=== PATIENT | female | born 1960 | race Caucasian/White ===

== ENCOUNTER 2022-08-25 15:31 | Observation (INO) ==
[2022-08-25] MEDS ORDERED: KETOROLAC TROMETHAMINE 15 MG/ML VIAL IV STA (16:19)
[2022-08-25] MEDS ORDERED: SODIUM CHLORIDE 0.9% 1000ML 1,000 ML IV STA (16:19)
[2022-08-25] MEDS ORDERED: dexAMETHasone**PF** 10 MG/ML VIAL IV ONE (16:24)
--- NOTE | 2022-08-25 16:36 | Emergency Department Note ---
History of Present Illness General Chief complaint: Abdominal Pain Time Seen by Provider: 08/25/22 16:02 History of Present Illness Maximum Pain Intensity: 7 This 61-year-old female patient presents emergency department complaining of left-sided back pain, left flank and left lower quadrant abdominal pain, decreased urine output, and recent UTI. The patient has a history of chronic back issues with a history of surgery to her back in the past. She states in mid July she was helping her mom clean up the house and was doing a lot of heavy lifting and developed progressively worsening left lower back pain. She states the pain is now so severe that she cannot tolerate it. She rates the pain as sharp and 10/10. She was seen in [facility] in the [place] ER over the last 3 weeks. She does not remember what [facility] did for the work-up, but states [place] did an MRI that showed she was "bone to nerve" and they recommended her follow-up with a spine surgeon. She has an appointment with Dr. Wood of [place] on 08/03/22. She states that she does not feel she can wait that long because of the pain. She has tried [place], naproxen, Flexeril, and Toradol without relief of her symptoms. She has tingling into the left leg and radiation of the pain into the top of the left leg. She is able to walk, but has trouble walking because of the pain and gets fatigued easily from walking. Denies any loss of control of her bowel or bladder functions. She has been somewhat constipated recently because of the pain medication and has been taking [id number] stool softeners and enemas. She was also diagnosed with a UTI in [place] ER, but states she did not finish her antibiotics. She denies any dysuria, but states that she has not been having normal urine output. Denies any hematuria. Pain to the left flank and left lower quadrant is new. She denies any fevers, nausea, or vomiting. No chest pain or shortness of breath. She has been having mild intermittent reflux symptoms from the pain medication. Home Medications Medication Instructions Recorded Confirmed Type cyclobenzaprine 10 mg tablet 10 mg PO TID PRN Muscle Spasticity 08/25/22 08/25/22 History hydrocodone 5 mg-acetaminophen 325 1 tab PO Q6H PRN Back Pain 08/25/22 08/25/22 History mg tablet levothyroxine 75 mcg tablet 75 mcg PO DAILY 08/25/22 08/25/22 History metformin 500 mg tablet,extended 1,000 mg PO BID 08/25/22 08/25/22 History release 24 hr prednisone 10 mg tablet 10 mg PO DAILY 08/25/22 08/25/22 History Allergies Allergy/AdvReac Type Severity Reaction Status Date / Time No Known Allergies Allergy Verified 08/25/22 16:19 Past Med/Surg History Medical History Diabetes Hypothyroidism Surgical History H/O lumbosacral spine surgery Social History Smoking Status: Never smoker Hx Alcohol Use: No Hx Substance Use: No Preferred Language: Stateless Communication Ability: Effective Mixed [employer] Required: No Beliefs That Will Affect Care: Baptism Baptism Beliefs: CONGREGATIONAL Current Living Situation: Alone Feels Safe at Home: Yes Safety Concerns: Feels Safe At This Time Assistive Devices: Walker Review of Systems See HPI for pertinent positives & negatives. and A total of 10 systems reviewed and were otherwise negative Physical Exam Vital Signs Vital Signs - 24 hr 08/25/22 15:50 08/25/22 17:30 08/25/22 19:00 Temperature 36.8 C Temperature Source Oral Pulse Rate 78 Pulse Rate [Right Finger] 87 Pulse Rhythm Regular Pulse Rhythm [Right Finger] Regular Pulse Strength Normal Pulse Strength [Right Finger] Normal Respiratory Rate 18 16 Respiratory Effort / Characteristics Non-Labored Spontaneous Non-Labored Spontaneous Respiratory Depth Normal Normal Respiratory Pattern Regular Regular Blood Pressure 150/102 H Blood Pressure [Right Arm] 147/89 H Blood Pressure Mean 118 Blood Pressure Mean [Right Arm] 108 Blood Pressure Position Sitting Pulse Oximetry 98 99 95 Oxygen Delivery Method Room Air Room Air Room Air Sepsis Recent Fever Within 48 Hours No Sepsis New/Unexplained Change in Mental Status No Sepsis Action Taken by Nursing No Action Required 08/25/22 21:00 Temperature Temperature Source Pulse Rate Pulse Rate [Right Finger] Pulse Rhythm Pulse Rhythm [Right Finger] Pulse Strength Pulse Strength [Right Finger] Respiratory Rate Respiratory Effort / Characteristics Non-Labored Respiratory Depth Normal Respiratory Pattern Blood Pressure Blood Pressure [Right Arm] Blood Pressure Mean Blood Pressure Mean [Right Arm] Blood Pressure Position Pulse Oximetry Oxygen Delivery Method Sepsis Recent Fever Within 48 Hours Sepsis New/Unexplained Change in Mental Status Sepsis Action Taken by Nursing VITALS: Vitals are noted on the nurse's note and reviewed by myself. GENERAL: 61-year-old female, who appears in pain, but nontoxic and non- diaphoretic, well-developed well-nourished. SKIN: Capillary refill <2 sec. No tenting of the skin. HEAD: Normocephalic, atraumatic. EARS: External auditory canals clear, tympanic membranes pearly rey without erythema or effusion bilaterally. EYES: PERRLA. EOMI. Conjunctivae without injection, sclerae without icterus. NOSE: Patent without discharge. MOUTH: Mucous membranes moist. Uvula midline. Airway patent. NECK: Supple without nuchal rigidity. HEART: Regular rate and rhythm without murmurs gallops or rubs. LUNGS: Clear to auscultation bilaterally without wheezes, rales or rhonchi. No retractions or accessory muscle use. ABDOMEN: Positive bowel sounds x 4. Normal tympanic percussion. Soft, tender to palpation over the left flank and left lower quadrant, without masses or organomegaly. Positive left-sided CVA tenderness. Granda sign negative. No guarding or rebound tenderness. No focal RLQ tenderness. MUSCULOSKELETAL: Tender to palpation over the mid to lower lumbar spine and the left-sided paraspinal muscles. No tenderness over the right-sided paraspinal muscles. No tenderness of the cervical or thoracic spine. Full range of motion of the bilateral upper extremities without tenderness to palpation. The left leg appears slightly shortened and externally rotated compared to the right. However, this may just be due to the patient's positioning because of pain in the lower back. Range of motion of the left hip causes significant pain and is limited due to the pain. Full range of motion of the left knee and ankle without pain. Positive straight leg raise on the left. Strength on the left is 3/5 compared to 4/5 on the right. Full range of motion of the right lower extremity without pain. Dorsalis pedis and posterior tibial pulses 2+. Normal sensation to light and sharp touch of the bilateral lower extremities. NEURO: Patient was alert and oriented to person place and time. No focal neurological deficits. Course Administered Medications Sodium Chloride (Nss 1000ml) 1,000 mls @ 60 mls/hr IV .[id number] ONE Stop: 08/26/22 14:10 Last Admin: 08/26/22 00:53 Dose: 60 mls/hr Documented By: YAQUELIN Promethazine HCl 6.25 mg/ (Sodium Chloride) 50.25 mls @ 201 mls/hr IV Q6H PRN PRN Reason: Nausea And Vomiting Stop: 09/24/22 21:30 Last Infusion: 08/26/22 01:10 Dose: 0 mls/hr Documented By: Admin: 08/26/22 00:53 Dose: 201 mls/hr Documented By: YAQUELIN Lidocaine (Lidocaine 5% 1 Patch) 1 patch TD QAM ABHINAV Stop: 09/24/22 21:34 Last Admin: 08/26/22 00:53 Dose: Not Given Documented By: YAQUELIN Discontinued Medications Dexamethasone Sodium Phosphate (DexamethasonePf 10 Mg/Ml Vial) 10 mg IV NOW ONE Stop: 08/25/22 16:25 Last Admin: 08/25/22 16:34 Dose: 10 mg Documented By: GRACIA Fentanyl Citrate (Fentanyl Citrate 100 Mcg/2 Ml Vial) 50 mcg IV NOW STA Stop: 08/25/22 20:21 Last Admin: 08/25/22 20:59 Dose: 50 mcg Documented By: GENE Sodium Chloride (Nss 1000ml) 1,000 mls @ 999 mls/hr IV .Q1H1M STA Stop: 08/25/22 17:19 Last Infusion: 08/25/22 19:56 Dose: 0 mls/hr Documented By: Admin: 08/25/22 16:33 Dose: 999 mls/hr Documented By: GRACIA Cefepime HCl (Maxipime) 2,000 mg in 20 mls @ 5 mls/min IV NOW STA; Protocol Stop: 08/25/22 20:44 Last Admin: 08/25/22 21:53 Dose: 5 mls/min Documented By: GENE Insulin Aspart (Insulin Aspart Per Unit) 0 units SC ACHS ABHINAV Stop: 09/24/22 23:55 Last Admin: 08/26/22 00:52 Dose: 7 units Documented By: YAQUELIN Co-signed By: CRISELDA Insulin Glargine (Lantus Per Unit Charge) 5 units SQ HS ABHINAV Stop: 09/24/22 23:55 Last Admin: 08/26/22 00:09 Dose: Not Given Documented By: YAQUELIN Insulin Glargine (Lantus Per Unit Charge) 20 units SQ NOW STA Stop: 08/25/22 23:59 Last Admin: 08/26/22 00:52 Dose: 20 units Documented By: YAQUELIN Co-signed By: CRISELDA Ioversol (Ioversol 350 Mg 100ml Prefilled Syringe) 93 ml IV ONCE ONE Stop: 08/25/22 17:26 Last Admin: 08/25/22 17:26 Dose: 93 ml Documented By: JARRED Ketorolac Tromethamine (Ketorolac Tromethamine 15 Mg/Ml Vial) 15 mg IV NOW STA Stop: 08/25/22 16:20 Last Admin: 08/25/22 16:34 Dose: 15 mg Documented By: GRACIA Lactulose (Lactulose Syrup 20 Gm/30 Ml Udc) 30 gm PO NOW STA Stop: 08/25/22 21:26 Last Admin: 08/25/22 21:53 Dose: 30 gm Documented By: GENE Morphine Sulfate (Morphine Sulfate 4 Mg/Ml 1 Ml Carp\\Vial) 4 mg IV NOW STA Stop: 08/25/22 19:32 Last Admin: 08/25/22 19:37 Dose: 4 mg Documented By: JASON Ondansetron HCl (Ondansetron Inj 2 Mg/Ml 2 Ml Vial) 4 mg IV NOW STA Stop: 08/25/22 19:32 Last Admin: 08/25/22 19:37 Dose: 4 mg Documented By: JASON Polyethylene Glycol (Polyethylene (Miralax) 17 Gm Pack) 17 gm PO NOW STA Stop: 08/25/22 21:26 Last Admin: 08/25/22 21:53 Dose: 17 gm Documented By: GENE Medical Decision Making Differential Diagnosis Differential diagnosis includes strain/sprain, muscle spasm, disc herniation, fracture, subluxation, metastatic disease, cord compression, discitis, sciatica, cauda equina, conus medullaris syndrome, infection, epidural abscess, epidural hematoma, aortic disease, renal colic, UTI, pyelonephritis, diverticulitis, gastrointestinal, hip fracture, as well as other pathologies. Laboratory Data Attestation: I reviewed the patient's lab results. Result diagrams: 08/25/22 16:31 08/25/22 16:31 Lab Results 08/25/22 08/25/22 08/25/22 Range/Units 16:31 16:31 18:25 WBC 10.95 H (4.8-10.8) K/ul RBC 4.87 (3.93-5.22) M/uL Hgb 14.1 (12.0-16.0) g/dl Hct 40.7 (34.1-44.9) % MCV 83.6 (80.0-100.0) fL MCH 29.0 (25.0-34.0) pg MCHC 34.6 (32.0-36.0) g/dL RDW Std Deviation 40.1 (36.4-46.3) fL RDW Coeff of [place] 13.2 (11.5-14.5) % Plt Count 296 (130-400) K/uL MPV 9.8 (9.4-12.3) fL Immature Gran % (Auto) 0.9 % Neut % (Auto) 68.3 % Lymph % (Auto) 23.0 % [place] % (Auto) 5.0 % Eos % (Auto) 2.6 % Baso % (Auto) 0.2 % Neut # (Auto) 7.48 H (1.4-6.5) K/uL Lymph # (Auto) 2.52 (1.2-3.4) K/uL [place] # (Auto) 0.55 (0.24-0.82) K/uL Eos # (Auto) 0.28 (0-0.50) K/uL Baso # (Auto) 0.02 (0-0.2) K/uL Immature Gran # (Auto) 0.10 H (0.00-0.02) K/uL Sodium 138 (136-145) mmol/L Potassium 3.9 (3.5-5.1) mmol/L Chloride 103 (98-107) mmol/L Carbon Dioxide 24 (21-32) mmol/L Anion Gap 11 (3-11) BUN 30 H (6-23) mg/dl Creatinine 0.94 (0.6-1.2) mg/dl Est Cr Clr Drug Dosing 62.6 ml/min Est GFR ( Amer) 77.0 ml/min Est GFR (Non-Af Amer) 66.4 ml/min BUN/Creatinine Ratio 31.9 H (10-20) Glucose 152 H (70-99(Fasting)) mg/dl Calcium 9.1 (8.5-10.1) mg/dl Total Bilirubin 0.4 (0.2-1.0) mg/dl AST 13 (13-39) U/L ALT 28 (7-52) U/L Alkaline Phosphatase 49 (34-104) U/L Total Protein 6.6 (6.0-8.3) gm/dl Albumin 3.7 (3.4-5.0) gm/dl Globulin 2.9 (2.5-4.0) gm/dl Albumin/Globulin Ratio 1.3 (0.9-2) Lipase 101 H (11-82) U/L Urine Color Yellow Urine Appearance Cloudy A (Clear) Urine pH 5.5 (4.5-7.5) Ur Specific [place] > 1.045 H (1.000-1.030) Urine Protein Negative (Negative) Urine Glucose (UA) Negative (Negative) Urine Ketones Negative (Negative) Urine Blood Negative (Negative) Urine Nitrite Negative (Negative) Urine Bilirubin Negative (Negative) Urine Urobilinogen Negative (Negative) Ur Leukocyte Esterase 2+ H (Negative) Urine WBC (Auto) >30 H (0-5) /hpf Urine RBC (Auto) 0-4 (0-4) /hpf U Hyaline Cast (Auto) 1-5 (0-5) /lpf U Epithel Cells (Auto) >30 H (0-5) /lpf Urine Bacteria (Auto) Negative (Negative) Urine Yeast Budding A (None Prsent) SARS-CoV-2, RNA, NAAT (NEGATIVE) 08/25/22 Range/Units 20:57 WBC (4.8-10.8) K/ul RBC (3.93-5.22) M/uL Hgb (12.0-16.0) g/dl Hct (34.1-44.9) % MCV (80.0-100.0) fL MCH (25.0-34.0) pg MCHC (32.0-36.0) g/dL RDW Std Deviation (36.4-46.3) fL RDW Coeff of [place] (11.5-14.5) % Plt Count (130-400) K/uL MPV (9.4-12.3) fL Immature Gran % (Auto) % Neut % (Auto) % Lymph % (Auto) % [place] % (Auto) % Eos % (Auto) % Baso % (Auto) % Neut # (Auto) (1.4-6.5) K/uL Lymph # (Auto) (1.2-3.4) K/uL [place] # (Auto) (0.24-0.82) K/uL Eos # (Auto) (0-0.50) K/uL Baso # (Auto) (0-0.2) K/uL Immature Gran # (Auto) (0.00-0.02) K/uL Sodium (136-145) mmol/L Potassium (3.5-5.1) mmol/L Chloride (98-107) mmol/L Carbon Dioxide (21-32) mmol/L Anion Gap (3-11) BUN (6-23) mg/dl Creatinine (0.6-1.2) mg/dl Est Cr Clr Drug Dosing ml/min Est GFR ( Amer) ml/min Est GFR (Non-Af Amer) ml/min BUN/Creatinine Ratio (10-20) Glucose (70-99(Fasting)) mg/dl Calcium (8.5-10.1) mg/dl Total Bilirubin (0.2-1.0) mg/dl AST (13-39) U/L ALT (7-52) U/L Alkaline Phosphatase (34-104) U/L Total Protein (6.0-8.3) gm/dl Albumin (3.4-5.0) gm/dl Globulin (2.5-4.0) gm/dl Albumin/Globulin Ratio (0.9-2) Lipase (11-82) U/L Urine Color Urine Appearance (Clear) Urine pH (4.5-7.5) Ur Specific [place] (1.000-1.030) Urine Protein (Negative) Urine Glucose (UA) (Negative) Urine Ketones (Negative) Urine Blood (Negative) Urine Nitrite (Negative) Urine Bilirubin (Negative) Urine Urobilinogen (Negative) Ur Leukocyte Esterase (Negative) Urine WBC (Auto) (0-5) /hpf Urine RBC (Auto) (0-4) /hpf U Hyaline Cast (Auto) (0-5) /lpf U Epithel Cells (Auto) (0-5) /lpf Urine Bacteria (Auto) (Negative) Urine Yeast (None Prsent) SARS-CoV-2, RNA, NAAT NEGATIVE (NEGATIVE) Imaging Data Radiologist's Impression: Abdomen/Pelvis CT 08/25/22 16:[address] WITH IV CONTRAST CT DOSE: 303.30 mGy.cm HISTORY: Acute left lower quadrant and left flank pain Left flank and LLQ pain with recent UTI TECHNIQUE: Multiaxial CT images of the abdomen and pelvis were performed followi ng the IV administration of 93 cc of Optiray, A dose lowering technique was utilized adhering to the principles of ALARA. COMPARISON STUDY: Pelvis and hip radiographs of same day FINDINGS: Imaged inferior cardiac chambers are unremarkable. Mild subsegmental bibasilar atelectasis. Likely benign 4 mm solid nodule of the right middle lobe. No pneumatosis or pneumoperitoneum. Unremarkable spleen, pancreas and adrenal gla nds. Cholecystectomy. Probable hepatic steatosis without evidence of cirrhosis. Patency of the hepatic and portal veins. . Kidneys demonstrate no hydronephrosis. Indeterminate 6 mm area of slightly decreased enhancement within the inferior pole left kidney. This is too small to characterize. Unremarkable urinary bladder. Uterus appears surgically absent. Trace free pelvic fluid. Atherosclerosis of the aorta without aneurysm. No lymphadenopathy. Small hiatal hernia. No bowel obstruction or bowel wall thickening. Moderate colonic fecal retention. Noninflamed appendix. Postoperative changes of the anterior abdominal wall. Small fat filled infraumbilical hernia, diastases of 2.1 cm. Degenerative changes of the spine, pelvis and hips. L4-L5 and L5-S1 discectomy. IMPRESSION: 1. No acute intra-abdominal or intrapelvic abnormality. 2. No bowel obstruction or bowel wall thickening. Normal appendix. 3. Moderate fecal retention. 4. Small hiatal hernia. 5. Trace free pelvic fluid. ACT 112: Negative or not required by law. The above report was generated using voice recognition software. It may contain grammatical, syntax or spelling errors. Electronically signed by: Andrew Pimentel M.D. 08/25/2022 5:45 PM Hip/Pelvis X-Ray 08/25/22 16:19 XR hip LT 2V w pelvis HISTORY: 61 years-old Female left hip pain acute left-sided hip pain COMPARISON: None TECHNIQUE: AP view of the pelvis with 2 views of the left hip FINDINGS: Postoperative changes of the imaged lower lumbar spine with surgical clips of the pelvis. Mild gaseous distention of the rectum with pelvic basin phleboliths. Mild osteoarthritis of the hips. No acute fracture, dislocation or avascular necrosis. IMPRESSION: No acute fracture or dislocation. ACT 112: Negative or not required by law. The above report was generated using voice recognition software. It may contain grammatical, syntax or spelling errors. Electronically signed by: Andrew Pimentel M.D. 08/25/2022 5:14 PM MDM Narrative I examined the patient. An IV lock was placed and labs were drawn. The patient was given 1 L normal saline solution bolus, Toradol 15 mg IV, Decadron 10 mg IV, morphine 4 mg IV, Zofran 4 mg IV, and fentanyl 50 mcg IV for her pain while in the emergency department. White blood cell count was elevated at 10.95. Hemoglobin was normal at 14.1. BUN elevated at 30, glucose 152, lipase mildly elevated at 101, LFTs were normal. Urinalysis with 2+ leukocytes, greater than 30 white blood cells, greater than 30 epithelial cells, and budding yeast. Urine culture is still pending. COVID test was negative. X-ray of the left hip without evidence for fracture or dislocation. CT scan of the abdomen and pelvis with contrast showed moderate fecal retention, small hiatal hernia, trace free pelvic fluid, but no other acute intra-abdominal or intrapelvic abnormality. Specifically no evidence for pyelonephritis, diverticulitis, or appendicitis. I was able to obtain the records from [facility] with MRI of thoracic and lumbar spine that show postoperative fusion at L4/L5 and L5/S1 with evidence of moderate degree of left-sided neuroforaminal encroachment at L5/L1. The patient did not have significant improvement of her pain after all of the above medication she was given in the emergency department. The patient also states that she has tried oral steroids, [place], naproxen, Flexeril, and Toradol as an outpatient without relief of her pain. The patient does not feel that she can wait until her appointment in [facility] for definitive treatment of her back pain. The patient also states that she lives alone and does not feel like she can take care of herself right now because of the pain and her trouble with getting around her house and getting the medication she needs. I had a m eaningful discussion about this patient with Dr. Waite. They agree with my assessment and the treatment plan. I spoke with case management and they are unable to obtain any resources for the patient since it is Friday evening. I discussed the case with the on-call hospitalist and the patient will be admitted for pain control and to see if orthopedics can see her on Friday as an inpatient for her worsening lumbar radiculopathy. She can also be treated for her UTI and constipation while inpatient which are likely contributing to her symptoms. Please refer to the hospitalist's dictation for further details. The patient's care was transferred in stable condition. Impression & Plan Back pain, Constipation, UTI (urinary tract infection), Left sided abdominal pain, Left hip pain Discharge Plan Visit Data Chief Complaint: Abdominal Pain ED Provider: Michael Waite ED Midlevel Provider: Alona Moe Discharge Problem: Back pain, Constipation, UTI (urinary tract infection), Left sided abdominal pain, Left hip pain Patient Disposition: Admitted As Inpatient Discharge Instructions Interventions: ED Discharge Assessment Last Done: 08/25/22 23:56 : Back pain Qualifiers: Back pain location: low back pain Chronicity: chronic Back pain laterality: left Sciatica presence: with sciatica Sciatica laterality: sciatica of left side Qualified Code(s): M54.42 - Lumbago with sciatica, left side Constipation Qualifiers: Constipation type: drug induced constipation Qualified Code(s): K59.03 - Drug induced constipation UTI (urinary tract infection) Qualifiers: Urinary tract infection type: acute cystitis Hematuria presence: without hem aturia Qualified Code(s): N30.00 - Acute cystitis without hematuria
[2022-08-25 16:44] LABS: Basophils # (auto) 0.02 K/uL (0-0.2); Basophils % (auto) 0.2 %; Eosinophils # (auto) 0.28 K/uL (0-0.50); Eosinophils % (auto) 2.6 %; Hematocrit (blood only) 40.7 % (34.1-44.9); Hemoglobin 14.1 g/dl (12.0-16.0); Immature Granulocytes % (auto) 0.9 %; Lymphocytes # (auto) 2.52 K/uL (1.2-3.4); Mean Corpuscular Hgb Conc 34.6 g/dL (32.0-36.0); Mean Corpuscular Volume 83.6 fL (80.0-100.0); Mean Platelet Volume 9.8 fL (9.4-12.3); Monocytes # (auto) 0.55 K/uL (0.24-0.82); Neutrophils # (auto) 7.48 K/uL (1.4-6.5); Neutrophils % (auto) 68.3 %; Platelet Count 296 K/uL (130-400); RDW Coefficient of Variation 13.2 % (11.5-14.5); RDW Standard Deviation 40.1 fL (36.4-46.3); Red Blood Count 4.87 M/uL (3.93-5.22); White Blood Count 10.95 K/ul (4.8-10.8)
[2022-08-25 17:09] LABS: Albumin Globulin Ratio 1.3 (0.9-2); Albumin Level 3.7 gm/dl (3.4-5.0); BUN Creatinine Ratio 31.9 (10-20); Bilirubin,Total 0.4 mg/dl (0.2-1.0); Calcium 9.1 mg/dl (8.5-10.1); Creatinine Clr Calc Pharmacy 62.6 ml/min; Est GFR (Non-African American) 66.4 ml/min; Globulin 2.9 gm/dl (2.5-4.0); Potassium 3.9 mmol/L (3.5-5.1); Total Protein 6.6 gm/dl (6.0-8.3)
--- NOTE | 2022-08-25 17:15 | XRay Report ---
XR hip LT 2V w pelvis HISTORY: 61 years-old Female left hip pain acute left-sided hip pain COMPARISON: None TECHNIQUE: AP view of the pelvis with 2 views of the left hip FINDINGS: Postoperative changes of the imaged lower lumbar spine with surgical clips of the pelvis. Mild gaseou s distention of the rectum with pelvic basin phleboliths. Mild osteoarthritis of the hips. No acute fracture, dislocation or avascular necrosis. IMPRESSION: No acute fracture or dislocation. ACT 112: Negative or not required by law. The above report was generated using voice recognition software. It may contain grammatical, syntax o r spelling errors. Electronically signed by: Andrew Pimentel M.D. 08/25/2022 5:14 PM
[2022-08-25] MEDS ORDERED: IOVERSOL 350 MG 100mL Prefilled Syringe IV ONE (17:25)
--- NOTE | 2022-08-25 17:47 | CT Scan Report ---
ABDOMEN AND PELVIS CT WITH IV CONTRAST CT DOSE: 303.30 mGy.cm HISTORY: Acute left lower quadrant and left flank pain Left flank and LLQ pain with recent UTI TECHNIQUE: Multiaxial CT images of the abdomen and pelvis were performed following the IV administrat ion of 93 cc of Optiray, A dose lowering technique was utilized adhering to the principles of ALARA. COMPARISON STUDY: Pelvis and hip radiographs of same day FINDINGS: Imaged inferior cardiac chambers are unremarkable. Mild subsegmental bibasilar atelectasis. Likely be nign 4 mm solid nodule of the right middle lobe. No pneumatosis or pneumoperitoneum. Unremarkable spl een, pancreas and adrenal glands. Cholecystectomy. Probable hepatic steatosis without evidence of cir rhosis. Patency of the hepatic and portal veins. . Kidneys demonstrate no hydronephrosis. Indeterminate 6 mm area of slightly decreased enhancement wi thin the inferior pole left kidney. This is too small to characterize. Unremarkable urinary bladder. Uterus appears surgically absent. Trace free pelvic fluid. Atherosclerosis of the aorta without aneur ysm. No lymphadenopathy. Small hiatal hernia. No bowel obstruction or bowel wall thickening. Moderate colonic fecal retention. Noninflamed appendix. Postoperative changes of the anterior abdominal wall. Small fat filled infraum bilical hernia, diastases of 2.1 cm. Degenerative changes of the spine, pelvis and hips. L4-L5 and L5 -S1 discectomy. IMPRESSION: 1. No acute intra-abdominal or intrapelvic abnormality. 2. No bowel obstruction or bowel wall thickening. Normal appendix. 3. Moderate fecal retention. 4. Small hiatal hernia. 5. Trace free pelvic fluid. ACT 112: Negative or not required by law. The above report was generated using voice recognition software. It may contain grammatical, syntax o r spelling errors. Electronically signed by: Andrew Pimentel M.D. 08/25/2022 5:45 PM
[2022-08-25 18:39] LABS: Appearance Urine Cloudy (Clear); Bacteria Urine Automated Negative (Negative); Bilirubin Urine Negative (Negative); Blood Urine Negative (Negative); Color Urine Yellow; Epithelial Cell Urine Auto >30 /lpf (0-5); Glucose Urine UA Negative (Negative); Ketones Urine Negative (Negative); Leukocyte Esterase Urine 2+ (Negative); Nitrite Urine Negative (Negative); Protein Urine Negative (Negative); Specific Gravity Urine > 1.045 (1.000-1.030); Urobilinogen Urine Negative (Negative); WBC Urine Automated >30 /hpf (0-5); pH Urine 5.5 (4.5-7.5)
[2022-08-25 19:03] LABS: RBC Urine Automated 0-4 /hpf (0-4)
[2022-08-25] MEDS ORDERED: MoRPHine SULFATE 4 MG/ML 1 ML CARP\\VIAL IV STA (19:31)
[2022-08-25] MEDS ORDERED: ONDANSETRON INJ 2 MG/ML 2 ML VIAL IV STA (19:31)
[2022-08-25] MEDS ORDERED: fentaNYL citrate 100 MCG/2 ML VIAL IV STA (20:20)
[2022-08-25] MEDS ORDERED: CEFEPIME 2,000 MG/20 ML VIAL IV STA (20:41)
[2022-08-25] MEDS ORDERED: POLYETHYLENE (MIRALAX) 17 GM PACK PO STA (21:25)
[2022-08-25] MEDS ORDERED: LACTULOSE SYRUP 20 GM/30 ML UDC PO STA (21:25)
--- NOTE | 2022-08-25 21:25 | History & Physical Report ---
Date of Service August 25, 2022 Assessment & Plan (1) Back pain: Plan: Worsening lumbar radiculopathy hx back surgery from years ago Abdominal pain Multifactorial Complicated UTI, incomplete treatment Narcotic induced constipation DM2 on oral medications, unknown baseline control hypothyroidism on supplementation past tobacco abuse [facility] [employer] Repeat MRI lumbosacral spine Orthopedic spine consult in a.m. Re: Worsening lumbar radiculopathy N.p.o. until patient evaluated by orthopedics in a.m. in anticipation of procedure. Urine CS, Cefepime Bowel regimen Basal bolus insulin adjusted for n.p.o. status, ISS BG goal 1 10-1 40, check hemoglobin A1c DVT prophylaxis. SCDs Re: Possible procedural intervention Full code Text document was generated using [employer] voice recognition software. It may contain grammatical or spelling errors. Kindly contact undersigned for clarification of any documentation item in question. History of Present Illness Chief Complaint: Worsening back pain, abdominal pain Primary Care Provider: Dr. Salvador History obtained from patient and records. Medical history significant for chronic back pain status post surgery, DM2 on oral medications, hypothyroidism, past tobacco abuse. 3 weeks ago, patient noted worsening of chronic low back pain with radiation to the left leg after helping her mother out lifting some boxes of mother's home. 5 ER visits ([place] and [facility]) in the last few weeks secondary to back pain. Back MRI from 3 weeks ago showed nerve on bone problem as per patient. Closest appointment with [facility] spine specialists was in September. Patient able to get an appointment with [facility] orthopedic receivables specialist next week. Last ER visit at [facility] 5 days ago. Patient told she also had a UTI for which Keflex was prescribed. Worsening back pain with left leg weakness noted by patient. Symptoms not responding to outpatient steroid course and Vicodin. No fever, no chills, no chest pain, no shortness of breath. Incontinence symptoms. Achy abdominal pain with constipation symptoms the last 2 days. Patient consulted ER for worsening discomfort increasing weakness. Decadron administered at the ER. Medical History as above Surgical History : Back surgery, neck surgery, cholecystectomy, hernia repair, hysterectomy Family History : DM Personal/Social history : Past tobacco abuse, no EtOH intake, disabled Allergies Allergy/AdvReac Type Severity Reaction Status Date / Time No Known Allergies Allergy Verified 08/25/22 16:19 Home Medications Medication Instructions Recorded Confirmed Type cyclobenzaprine 10 mg tablet 10 mg PO TID PRN Muscle Spasticity 08/25/22 08/25/22 History hydrocodone 5 mg-acetaminophen 325 1 tab PO Q6H PRN Back Pain 08/25/22 08/25/22 History mg tablet levothyroxine 75 mcg tablet 75 mcg PO DAILY 08/25/22 08/25/22 History metformin 500 mg tablet,extended 1,000 mg PO BID 08/25/22 08/25/22 History release 24 hr prednisone 10 mg tablet 10 mg PO DAILY 08/25/22 08/25/22 History Past Med/Surg History Medical History Diabetes Hypothyroidism Surgical History H/O lumbosacral spine surgery Social History Smoking Status: Never smoker Hx Alcohol Use: No Hx Substance Use: No Preferred Language: Tamazight Communication Ability: Effective Tin Plater Required: No Beliefs That Will Affect Care: Rastafari Rastafari Beliefs: YAZIDI Current Living Situation: Alone Feels Safe at Home: Yes Safety Concerns: Feels Safe At This Time Assistive Devices: Walker Review of Systems Review of Systems: As per HPI, all other systems reviewed and negative Physical Exam Physical Exam: GENERAL: uncomfor anxious, tearful, no respiratory distress SKIN: Normal color, warm HEENT: [place] palpebral conjunctivae, no ptosis, dry buccal mucosa NECK : Supple, no tenderness CHEST : CTA, no tenderness HEART : RRR, no obvious murmurs ABDOMEN: Some distention, minimal hypogastric tenderness BACK : Low back tenderness, positive SLR left > right EXTREMITIES : No LE swelling/tenderness, no other conspicuous deformities noted NEUROLOGIC : Coherent, no facial asymmetry, gait and stance not assessed Results & Data Results & Data ([facility]) Vital Signs (Past 12 Hours) Vital Signs Temp Pulse Pulse Resp BP BP Pulse Ox 08/25/22 17:30 87 16 147/89 H 99 08/25/22 15:50 36.8 C 78 18 150/102 H 98 O2 Del Method 08/25/22 17:30 Room Air 08/25/22 15:50 Room Air Laboratory Results Laboratory Results WBC 10.95 K/ul (4.8-10.8) H 08/25/22 16:31 RBC 4.87 M/uL (3.93-5.22) 08/25/22 16:31 Hgb 14.1 g/dl (12.0-16.0) 08/25/22 16:31 Hct 40.7 % (34.1-44.9) 08/25/22 16:31 MCV 83.6 fL (80.0-100.0) 08/25/22 16: MCH 29.0 pg (25.0-34.0) 08/25/22 16: MCHC 34.6 g/dL (32.0-36.0) 08/25/22 16: RDW Std Deviation 40.1 fL (36.4-46.3) 08/25/22 16: RDW Coeff of [place] 13.2 % (11.5-14.5) 08/25/22 16: Plt Count 296 K/uL (130-400) 08/25/22 16: MPV 9.8 fL (9.4-12.3) 08/25/22 16: Immature Gran % (Auto) 0.9 % 08/25/22 16: Neut % (Auto) 68.3 % 08/25/22 16: Lymph % (Auto) 23.0 % 08/25/22 16:31 [place] % (Auto) 5.0 % 08/25/22 16: Eos % (Auto) 2.6 % 08/25/22 16: Baso % (Auto) 0.2 % 08/25/22 16:31 Neut # (Auto) 7.48 K/uL (1.4-6.5) H 08/25/22 16: Lymph # (Auto) 2.52 K/uL (1.2-3.4) 08/25/22 16: [place] # (Auto) 0.55 K/uL (0.24-0.82) 08/25/22 16:31 Eos # (Auto) 0.28 K/uL (0-0.50) 08/25/22 16: Baso # (Auto) 0.02 K/uL (0-0.2) 08/25/22 16:31 Immature Gran # (Auto) 0.10 K/uL (0.00-0.02) H 08/25/22 16:31 Sodium 138 mmol/L (136-145) 08/25/22 16:31 Potassium 3.9 mmol/L (3.5-5.1) 08/25/22 16:31 Chloride 103 mmol/L (98-107) 08/25/22 16:31 Carbon Dioxide 24 mmol/L (21-32) 08/25/22 16:31 Anion Gap 11 (3-11) 08/25/22 16:31 BUN 30 mg/dl (6-23) H 08/25/22 16:31 Creatinine 0.94 mg/dl (0.6-1.2) 08/25/22 16:31 Est Cr Clr Drug Dosing 62.6 ml/min 08/25/22 16:31 Est GFR ( Amer) 77.0 ml/min 08/25/22 16:31 Est GFR (Non-Af Amer) 66.4 ml/min 08/25/22 16:31 BUN/Creatinine Ratio 31.9 (10-20) H 08/25/22 16:31 Glucose 152 mg/dl (70-99(Fasting)) H 08/25/22 16:31 Calcium 9.1 mg/dl (8.5-10.1) 08/25/22 16:31 Total Bilirubin 0.4 mg/dl (0.2-1.0) 08/25/22 16:31 AST 13 U/L (13-39) 08/25/22 16:31 ALT 28 U/L (7-52) 08/25/22 16:31 Alkaline Phosphatase 49 U/L (34-104) 08/25/22 16:31 Total Protein 6.6 gm/dl (6.0-8.3) 08/25/22 16:31 Albumin 3.7 gm/dl (3.4-5.0) 08/25/22 16:31 Globulin 2.9 gm/dl (2.5-4.0) 08/25/22 16:31 Albumin/Globulin Ratio 1.3 (0.9-2) 08/25/22 16:31 Lipase 101 U/L (11-82) H 08/25/22 16:31 Urine Color Yellow 08/25/22 18:25 Urine Appearance Cloudy (Clear) A 08/25/22 18: Urine pH 5.5 (4.5-7.5) 08/25/22 18:25 Ur Specific [place] > 1.045 (1.000-1.030) H 08/25/22 18:25 Urine Protein Negative (Negative) 08/25/22 18:25 Urine Glucose (UA) Negative (Negative) 08/25/22 18: Urine Ketones Negative (Negative) 08/25/22 18: Urine Blood Negative (Negative) 08/25/22 18: Urine Nitrite Negative (Negative) 08/25/22 18: Urine Bilirubin Negative (Negative) 08/25/22 18: Urine Urobilinogen Negative (Negative) 08/25/22 18:25 Ur Leukocyte Esterase 2+ (Negative) H 08/25/22 18:25 Urine WBC (Auto) >30 /hpf (0-5) H 08/25/22 18:25 Urine RBC (Auto) 0-4 /hpf (0-4) 08/25/22 18:25 U Hyaline Cast (Auto) 1-5 /lpf (0-5) 08/25/22 18:25 U Epithel Cells (Auto) >30 /lpf (0-5) H 08/25/22 18:25 Urine Bacteria (Auto) Negative (Negative) 08/25/22 18:25 Urine Yeast Budding (None Prsent) A 08/25/22 18:25 SARS-CoV-2, RNA, NAAT NEGATIVE (NEGATIVE) 08/25/22 20:57 Impressions Abdomen/Pelvis CT 08/25/22 16:[address] WITH IV CONTRAST CT DOSE: 303.30 mGy.cm HISTORY: Acute left lower quadrant and left flank pain Left flank and LLQ pain with recent UTI TECHNIQUE: Multiaxial CT images of the abdomen and pelvis were performed following the IV administration of 93 cc of Optiray, A dose lowering technique was utilized adhering to the principles of ALARA. COMPARISON STUDY: Pelvis and hip radiographs of same day FINDINGS: Imaged inferior cardiac chambers are unremarkable. Mild subsegmental bibasilar atelectasis. Likely benign 4 mm solid nodule of the right middle lobe. No pneumatosis or pneumoperitoneum. Unremarkable spleen, pancreas and adrenal glands. Cholecystectomy. Probable hepatic steatosis without evidence of cirrhosis. Patency of the hepatic and portal veins. . Kidneys demonstrate no hydronephrosis. Indeterminate 6 mm area of slightly decreased enhancement within the inferior pole left kidney. This is too small to characterize. Unremarkable urinary bladder. Uterus appears surgically absent. Trace free pelvic fluid. Atherosclerosis of the aorta without aneurysm. No lymphadenopathy. Small hiatal hernia. No bowel obstruction or bowel wall thickening. Moderate colonic fecal retention. Noninflamed appendix. Postoperative changes of the anterior abdominal wall. Small fat filled infraumbilical hernia, diastases of 2.1 cm. Degenerative changes of the spine, pelvis and hips. L4-L5 and L5-S1 discectomy. IMPRESSION: 1. No acute intra-abdominal or intrapelvic abnormality. 2. No bowel obstruction or bowel wall thickening. Normal appendix. 3. Moderate fecal retention. 4. Small hiatal hernia. 5. Trace free pelvic fluid. ACT 112: Negative or not required by law. The above report was generated using voice recognition software. It may contain grammatical, syntax or spelling errors. Electronically signed by: Andrew Pimentel M.D. 08/25/2022 5:45 PM Hip/Pelvis X-Ray 08/25/22 16:19 XR hip LT 2V w pelvis HISTORY: 61 years-old Female left hip pain acute left-sided hip pain COMPARISON: None TECHNIQUE: AP view of the pelvis with 2 views of the left hip FINDINGS: Postoperative changes of the imaged lower lumbar spine with surgical clips of the pelvis. Mild gaseous distention of the rectum with pelvic basin phleboliths. Mild osteoarthritis of the hips. No acute fracture, dislocation or avascular necrosis. IMPRESSION: No acute fracture or dislocation. ACT 112: Negative or not required by law. The above report was generated using voice recognition software. It may contain grammatical, syntax or spelling errors. Electronically signed by: Andrew Pimentel M.D. 08/25/2022 5:14 PM
[2022-08-25] MEDS ORDERED: LORazepam 0.5 MG TAB PO PRN (21:31)
[2022-08-25] MEDS ORDERED: SODIUM CHLORIDE 0.9% 1000ML 1,000 ML IV ONE (21:31)
[2022-08-25] MEDS ORDERED: LANTUS PER UNIT CHARGE SQ SCH (23:56)
[2022-08-25] MEDS ORDERED: CARBOHYDRATES FOR HYPOGLYCEMIA PO PRN (23:56)
[2022-08-25] MEDS ORDERED: GLUCAGON FOR INJ 1 MG VIAL SQ PRN (23:56)
[2022-08-25] MEDS ORDERED: GLUCOSE 10 TAB/TUBE PO PRN (23:56)
[2022-08-25] MEDS ORDERED: GLUCOSE 40% GEL 15 GM TUBE PO PRN (23:56)
[2022-08-25] MEDS ORDERED: INSULIN ASPART PER UNIT SC SCH (23:56)
[2022-08-25] MEDS ORDERED: DEXTROSE 50% 50 ML SYRINGE IV PRN (23:56)
[2022-08-25] MEDS ORDERED: LANTUS PER UNIT CHARGE SQ STA (23:58)
[2022-08-26] MEDS: PROMETHAZINE HCL 6.25 MG in SODIUM CHLORIDE 0.9% 50 ML IV PRN (00:53)
[2022-08-26] MEDS: LIDOCAINE 5% 1 PATCH TD SCH (00:53)
[2022-08-26] MEDS ORDERED: Nursing to Pharmacy Communication SCH ×2 (01:30→11:15)
[2022-08-26] MEDS: KETOROLAC TROMETHAMINE 15 MG/ML VIAL IV PRN ×3 (04:12→20:39)
[2022-08-26] MEDS ORDERED: INSULIN ASPART PER UNIT SC SCH (06:00)
[2022-08-26] MEDS: CEFEPIME 2,000 MG in SYRINGE 0 ML IV SCH ×2 (06:18→17:43)
[2022-08-26] MEDS: LEVOTHYROXINE SODIUM 75 MCG TABLET PO SCH (06:18)
[2022-08-26 06:59] LABS: Basophils # (auto) 0.02 K/uL (0-0.2); Basophils % (auto) 0.2 %; Eosinophils # (auto) 0.01 K/uL (0-0.50); Eosinophils % (auto) 0.1 %; Hematocrit (blood only) 35.5 % (34.1-44.9); Hemoglobin 12.2 g/dl (12.0-16.0); Immature Granulocytes # (auto) 0.12 K/uL (0.00-0.02); Immature Granulocytes % (auto) 0.9 %; Lymphocytes # (auto) 0.76 K/uL (1.2-3.4); Mean Corpuscular Hemoglobin 28.3 pg (25.0-34.0); Mean Corpuscular Hgb Conc 34.4 g/dL (32.0-36.0); Mean Corpuscular Volume 82.4 fL (80.0-100.0); Mean Platelet Volume 9.6 fL (9.4-12.3); Monocytes # (auto) 0.47 K/uL (0.24-0.82); Monocytes % (auto) 3.7 %; Neutrophils # (auto) 11.32 K/uL (1.4-6.5); Neutrophils % (auto) 89.1 %; Platelet Count 276 K/uL (130-400); RDW Coefficient of Variation 13.1 % (11.5-14.5); RDW Standard Deviation 39.7 fL (36.4-46.3); Red Blood Count 4.31 M/uL (3.93-5.22)
--- NOTE | 2022-08-26 07:33 | Magnetic Resonance Report ---
LUMBAR SPINE MRI HISTORY: worsening back pain, LLE weakness TECHNIQUE: Multiplanar multisequence MRI of the lumbar spine was performed without the use of contras t. COMPARISON: Abdomen and pelvis CT 08/25/2022. FINDINGS: For the purpose of the report the L5-S1 disc space will be located on axial image 26 of 29. Postoperative changes at L4-L5 and L5-S1 suggesting prior discectomies. The conus terminates at the L 2 level. Straightening of the lumbar spine. No fracture or subluxation. The visualized sacrum is inta ct. Mild disc space narrowing at L2-L3. L1-L2: No significant central canal or neural foraminal narrowing. L2-L3: No significant central canal or neural foraminal narrowing. Small broad-based posterior disc b ulge. L3-L4: No significant central canal or neural foraminal narrowing. L4-L5: No significant central canal or neural foraminal narrowing. L5-S1: Moderate left-sided neural foraminal narrowing. No significant central canal or right-sided ne ural foraminal narrowing. IMPRESSION: 1. No fracture or subluxation within the lumbar spine. 2. Mild disc space narrowing at L2-L3 without significant central canal or neural foraminal narrowing . 3. Postoperative changes at L4-5 and L5-S1. 4. Moderate left-sided neural foraminal narrowing at L5-S1. ACT 112: Negative or not required by law. Electronically signed by: Braxton Olivier M.D. 08/26/2022 7:31 AM
[2022-08-26 07:34] LABS: Estimated Average Glucose 148 mg/dl; Hemoglobin A1C 6.8 % (4.5-5.6)
[2022-08-26 07:38] LABS: BUN Creatinine Ratio 29.3 (10-20); Calcium 8.6 mg/dl (8.5-10.1); Creatinine Clr Calc Pharmacy 58.8 ml/min; Est GFR (Non-African American) 68.2 ml/min; Potassium 5.1 mmol/L (3.5-5.1)
[2022-08-26] MEDS: HYDROCODONE/ACETAMOPHEN 5/325MG TAB PO PRN ×2 (08:14→17:45)
[2022-08-26] MEDS: DOCUSATE SODIUM/SENNA 50/8.6MG TAB PO SCH ×2 (08:14→20:34)
--- NOTE | 2022-08-26 09:54 | XRay Report ---
XR lumbar spine min 4V routine CLINICAL HISTORY: Low back pain. COMPARISON STUDY: Lumbar spine MRI 08/25/2022. FINDINGS: Contrast within the bladder from the prior CT examination. There is prior cholecystectomy. Large amount well-formed stool seen throughout the colon. No fracture or subluxation within the lumba r spine. Intervertebral cages and fusion from L4 through S1. Remaining disc spaces are preserved. No acute fracture or subluxation. The sacrum is intact. IMPRESSION: 1. No fracture or subluxation within the lumbar spine. 2. Postoperative changes again noted within the lower lumbar spine. ACT 112: Negative or not required by law. Electronically signed by: Braxton Olivier M.D. 08/26/2022 9:53 AM
--- NOTE | 2022-08-26 12:29 | Orthopedic Consultation ---
Date of Consultation August 26, 2022 Assessment & Plan (1) Sacroiliitis: Assessment acute sacroiliitis on the left. Plan she appears to have acute sacroiliitis. Is quite incapacitating. I do not appreciate any evidence of neural encroachment or adjacent level disease on her MRI. X-rays demonstrate solid fusion from L4-S1. I recommended consultation with interventional pain management for a SI joint injection. I will follow her up in the next 2 to 3 weeks in my office. History of Present Illness Reason for Consultation: Severe low back pain Attending Physician: Jesse Plasencia MD History of Present Illness This a very pleasant 61-year-old female that presents to the emergency room with severe back pain. She states that she has been helping her mother move for the past 2 months but has had marked decline in status over the past 2 to 3 weeks with incapacitating left-sided low back pain. She denies any radicular c omplaints. Denies any weakness. She has had a surgery of the lumbar spine in 2001 without incident. She denies any specific trauma fall or event. She denies any lower extremity weakness. She states weightbearing on left lower extremity is incapacitating. Allergies Allergy/AdvReac Type Severity Reaction Status Date / Time No Known Allergies Allergy Verified 08/25/22 16:19 Home Medications Medication Instructions Recorded Confirmed Type cyclobenzaprine 10 mg tablet 10 mg PO TID PRN Muscle Spasticity 08/25/22 08/25/22 History hydrocodone 5 mg-acetaminophen 325 1 tab PO Q6H PRN Back Pain 08/25/22 08/25/22 History mg tablet levothyroxine 75 mcg tablet 75 mcg PO DAILY 08/25/22 08/25/22 History metformin 500 mg tablet,extended 1,000 mg PO BID 08/25/22 08/25/22 History release 24 hr prednisone 10 mg tablet 10 mg PO DAILY 08/25/22 08/25/22 History Patient History Medical History Diabetes Hypothyroidism Surgical History H/O lumbosacral spine surgery Social History Smoking Status: Never smoker Hx Alcohol Use: No Hx Substance Use: No Preferred Language: Wolof Communication Ability: Effective Insect Control Aide Required: No Beliefs That Will Affect Care: Muslim Muslim Beliefs: LATTER-DAY Current Living Situation: Alone Feels Safe at Home: Yes Safety Concerns: Feels Safe At This Time Assistive Devices: Crutches Physical Exam Physical Exam: On exam she has excellent plantarflexion dorsiflexion quadriceps. She has a positive logroll on the left. She has no tenderness palpation of the left trochanter. She does have exquisite tenderness palpation over the left SI joint compared to the right with a positive Jose sign. There is no tension signs. Sensory symmetric and intact. Results & Data ([facility]) Vital Signs (Past 12 Hours) Vital Signs Temp Pulse Resp BP Pulse Ox O2 Del Method 08/26/22 07:07 36.7 C 76 18 114/72 98 Room Air
[2022-08-26] MEDS: INSULIN ASPART PER UNIT SC SCH ×3 (13:18→20:30)
--- NOTE | 2022-08-26 15:17 | Hospitalist Progress Note ---
Date of Service August 26, 2022 Assessment & Plan (1) Back pain: Plan: Acute Left sacroiliitis --MRI Lumbar Spine:No fracture or subluxation within the lumbar spine. Mild disc space narrowing at L2-L3 without significant central canal or neural foraminal narrowing. Postoperative changes at L4-5 and L5-S1. Moderate left-sided neural foraminal narrowing at L5-S1. --Hip/Pelvic X ray: No acute fracture or dislocation. H/O Lumbar Surgery Appreciate orthopedics input Consulted pain management to help with SI joint injection Minimize narcotic use as able Fall precautions PT OT as able Constipation Likely due to Narcotics CT ABD:No acute intra-abdominal or intrapelvic abnormality. No bowel obstruction or bowel wall thickening. Normal appendix. Moderate fecal retention. Small hiatal hernia. Continue bowel regimen Complicated UTI Incomplete treatment Initial urine culture not contributory Continue cefepime Repeat urine culture DM II HbA1c 6.8 Hold oral medications Continue insulin per protocol Monitor BGs Hypothyroidism Normal TSH Continue Levothyroxine DVT Px: SCDs for now Code Status Full code Admission and Anticipated Discharge Date Admission Date: August 26, 2022 Subjective Patient is seen and examined at bedside States having lower back pain Also reports constipation Denies any chest pain, shortness breath, dizziness, nausea, abdominal pain Offers no other complaints Review of Systems Review of Systems: All systems reviewed & are unremarkable except as noted in Subjective Physical Exam Physical Exam: Physical Exam: Vitals signs as noted above General Appearance:Thin, mild distress Head: normocephalic, Atraumatic Eyes: normal inspection, EOMI Neck: supple, Trachea midline Respiratory/Chest: Normal breath sounds, CTA, No accessory muscle use Cardiovascular: S1, S2, No murmur Abdomen/GI:Soft, Non tender, decreased Bowel sounds Back: Left SI joint tenderness Extremities/Musculoskeletal:normal inspection, no edema Neurologic/Psych:AAOX3, grossly no focal neurological deficits Skin: normal color, warm Results & Data Results & Data ([facility]) Vital Signs (Past 12 Hours) Vital Signs Temp Pulse Resp BP Pulse Ox O2 Del Method 08/26/22 07:07 36.7 C 76 18 114/72 98 Room Air Laboratory Results Short CBC 08/25/22 08/26/22 Range/Units 16:31 06:46 WBC 10.95 H 12.70 H (4.8-10.8) K/ul Hgb 14.1 12.2 (12.0-16.0) g/dl Hct 40.7 35.5 (34.1-44.9) % Plt Count 296 276 (130-400) K/uL BMP 08/25/22 08/26/22 16:31 06:46 Sodium 138 136 Potassium 3.9 5.1 D Chloride 103 105 Carbon Dioxide 24 24 BUN 30 H 27 H Creatinine 0.94 0.92 Glucose 152 H 312 H* Calcium 9.1 8.6 Liver Function 08/25/22 Range/Units 16:31 Total Bilirubin 0.4 (0.2-1.0) mg/dl AST 13 (13-39) U/L ALT 28 (7-52) U/L Alkaline Phosphatase 49 (34-104) U/L Albumin 3.7 (3.4-5.0) gm/dl Urine 08/25/22 Range/Units 18:25 Urine Color Yellow Urine Appearance Cloudy A (Clear) Urine pH 5.5 (4.5-7.5) Ur Specific [place] > 1.045 H (1.000-1.030) Urine Protein Negative (Negative) Urine Glucose (UA) Negative (Negative) (1) Back pain Back pain laterality: left Back pain location: low back pain Chronicity: chronic Sciatica laterality: sciatica of left side Sciatica presence: with sciatica Qualified Code(s): M54.42 - Lumbago with sciatica, left side; G89.29 - Other chronic pain
[2022-08-26] MEDS: LANTUS PER UNIT CHARGE SQ SCH (20:29)
[2022-08-27] MEDS: LEVOTHYROXINE SODIUM 75 MCG TABLET PO SCH (05:30)
[2022-08-27] MEDS: CEFEPIME 2,000 MG in SYRINGE 0 ML IV SCH ×2 (05:31→18:25)
[2022-08-27] MEDS: HYDROCODONE/ACETAMOPHEN 5/325MG TAB PO PRN ×3 (05:42→20:27)
[2022-08-27] MEDS: POLYETHYLENE (MIRALAX) 17 GM PACK PO PRN (05:42)
[2022-08-27 07:10] LABS: Hematocrit (blood only) 35.8 % (34.1-44.9); Hemoglobin 12.3 g/dl (12.0-16.0); Mean Corpuscular Hemoglobin 28.5 pg (25.0-34.0); Mean Corpuscular Hgb Conc 34.4 g/dL (32.0-36.0); Mean Corpuscular Volume 83.1 fL (80.0-100.0); Mean Platelet Volume 9.9 fL (9.4-12.3); Platelet Count 247 K/uL (130-400); RDW Coefficient of Variation 13.2 % (11.5-14.5); RDW Standard Deviation 40.5 fL (36.4-46.3); Red Blood Count 4.31 M/uL (3.93-5.22); White Blood Count 9.33 K/ul (4.8-10.8)
[2022-08-27 07:30] LABS: BUN Creatinine Ratio 32.6 (10-20); Calcium 8.6 mg/dl (8.5-10.1); Est GFR (Non-African American) 65.6 ml/min; Potassium 4.4 mmol/L (3.5-5.1)
[2022-08-27] MEDS: KETOROLAC TROMETHAMINE 15 MG/ML VIAL IV PRN (08:31)
[2022-08-27] MEDS: DOCUSATE SODIUM/SENNA 50/8.6MG TAB PO SCH ×2 (08:31→20:27)
[2022-08-27] MEDS: LIDOCAINE 5% 1 PATCH TD SCH (08:35)
[2022-08-27] MEDS: INSULIN ASPART PER UNIT SC SCH ×4 (08:47→21:49)
[2022-08-27] MEDS: CYCLOBENZAPRINE HCL 10 MG TAB PO PRN ×2 (08:47→18:25)
--- NOTE | 2022-08-27 09:09 | Pain Management Consultation ---
Date of Consultation August 27, 2022 Assessment & Plan (1) Greater trochanteric bursitis of left hip: (2) Sacroiliitis: (3) UTI (urinary tract infection): Hematuria presence: without hematuria Urinary tract infection type: acute cystitis Qualified Code(s): N30.00 - Acute cystitis without hematuria Plan 1. I have switched the Toradol order from PRN to scheduled. 2. Patient's pain is primarily in the left greater trochanteric bursa. I have explained that we cannot perform a bursa injection today due to concurrent UTI. Injection can be done 2 weeks after ABX have been finished and UTI is still cleared. She is understanding. 3. Continue Lidocaine patches. 4. Patient does have sacroiliitis on the left but she states that this is chronic pain and not her primary complaint for hospitalization. Could consider SI joint injections on an outpatient basis. 5. Continue Hydrocodone 5/325mg x 6 hours and Flexeril 10mg TID. Thank you for the consultation. History of Present Illness Attending Physician: Jesse Plasencia MD History of Present Illness This is a 61 year old female that has been admitted to the [facility] for back pain, abdominal pain, and recent UTI. She does have a history of an L4-S1 fusion in 2001. Has an upcoming appointment with Dr. Wood in [place]. She has been helping move her mother to her sister's house which has involved a lot of physical activity and lifting. Over the last month or so she has been reporting increased pain. Pain is the worst in the left hip. She denies any radicular symptoms. It is described as a deep sharp throbbing pain that is aggravated with weightbearing and standing. Lying supine does provide adequate pain relief. Pain is rated 0/10 at its best and 8/10 at its worst. Outpatient she was receiving oral steroids and hydrocodone without any sig nificant relief. She is reporting significant limitation into performing her daily activities due to the pain. There is also left low back pain but that is chronic. Case discussed with Dr. Rios Allergies Allergy/AdvReac Type Severity Reaction Status Date / Time No Known Allergies Allergy Verified 08/25/22 16:19 Home Medications Medication Instructions Recorded Confirmed Type cyclobenzaprine 10 mg tablet 10 mg PO TID PRN Muscle Spasticity 08/25/22 2 History hydrocodone 5 mg-acetaminophen 325 1 tab PO Q6H PRN Back Pain 08/25/22 08/25/22 History mg tablet levothyroxine 75 mcg tablet 75 mcg PO DAILY 08/25/22 08/25/22 History metformin 500 mg tablet,extended 1,000 mg PO BID 08/25/22 08/25/22 History release 24 hr prednisone 10 mg tablet 10 mg PO DAILY 08/25/22 08/25/22 History Patient History Medical History Diabetes Hypothyroidism Surgical History H/O lumbosacral spine surgery Social History Smoking Status: Never smoker Hx Alcohol Use: No Hx Substance Use: No Preferred Language: Chinese Communication Ability: Effective Noteman Required: No Beliefs That Will Affect Care: Samaritan Samaritan Beliefs: DRUZE Current Living Situation: Alone Feels Safe at Home: Yes Safety Concerns: Feels Safe At This Time Assistive Devices: Crutches Physical Exam Physical Exam: GENERAL: This is a 61 year old female that appear in moderate pain. Laying supine in the hospital bed. There is increased pain with movement. HEAD/FACE: Normocephalic and atraumatic. EYES: No drainage or conjunctival injection. ENT: Nose without bleeding or discharge. Oral mucosa moist. NECK: Full ROM without apparent pain. No swelling or masses noted. RESPIRATORY: Patient with unlabored breathing. No signs of respiratory distress. CHEST/AXILLA: Chest movement symmetrical. No deformities noted. BACK: Moves with difficulty. Well healed surgical incision along the lumbar midline. There is focal tenderness along the left SI joint. SKIN: [place], warm and dry. No rash noted. MS/EXTREMITY: There is exquisite tenderness of the left greater trochanteric bursa. Full ROM of the left hip. NEURO: Alert and appears oriented. Speech is fluent. Cranial Nerves are grossly intact. PSYCH: Alert, pleasant. Results (Pain Clinic) Diagnostic Review MRI Findings: LUMBAR SPINE MRI HISTORY: worsening back pain, LLE weakness TECHNIQUE: Multiplanar multisequence MRI of the lumbar spine was performed without the use of contrast. COMPARISON: Abdomen and pelvis CT 08/25/2022. FINDINGS: For the purpose of the report the L5-S1 disc space will be located on axial image 26 of 29. Postoperative changes at L4-L5 and L5-S1 suggesting prior discectomies. The conus terminates at the L2 level. Straightening of the lumbar spine. No fracture or subluxation. The visualized sacrum is intact. Mild disc space narrowing at L2-L3. L1-L2: No significant central canal or neural foraminal narrowing. L2-L3: No significant central canal or neural foraminal narrowing. Small broad- based posterior disc bulge. L3-L4: No significant central canal or neural foraminal narrowing. L4-L5: No significant central canal or neural foraminal narrowing. L5-S1: Moderate left-sided neural foraminal narrowing. No significant central canal or right-sided neural foraminal narrowing. IMPRESSION: 1. No fracture or subluxation within the lumbar spine. 2. Mild disc space narrowing at L2-L3 without significant central canal or neural foraminal narrowing. 3. Postoperative changes at L4-5 and L5-S1. 4. Moderate left-sided neural foraminal narrowing at L5-S1. ACT 112: Negative or not required by law. Electronically signed by: Braxton Olivier M.D. 08/26/2022 7:31 AM Radiology Findings: XR hip LT 2V w pelvis HISTORY: 61 years-old Female left hip pain acute left-sided hip pain COMPARISON: None TECHNIQUE: AP view of the pelvis with 2 views of the left hip FINDINGS: Postoperative changes of the imaged lower lumbar spine with surgical clips of the pelvis. Mild gaseous distention of the rectum with pelvic basin phleboliths. Mild osteoarthritis of the hips. No acute fracture, dislocation or avascular necrosis. IMPRESSION: No acute fracture or dislocation. ACT 112: Negative or not required by law. The above report was generated using voice recognition software. It may contain grammatical, syntax or spelling errors. Electronically signed by: Andrew Pimentel M.D. 08/25/2022 5:14 PM XR lumbar spine min 4V routine CLINICAL HISTORY: Low back pain. COMPARISON STUDY: Lumbar spine MRI 08/25/2022. FINDINGS: Contrast within the bladder from the prior CT examination. There is prior cholecystectomy. Large amount well-formed stool seen throughout the colon. No fracture or subluxation within the lumbar spine. Intervertebral cages and fusion from L4 through S1. Remaining disc spaces are preserved. No acute fracture or subluxation. The sacrum is intact. IMPRESSION: 1. No fracture or subluxation within the lumbar spine. 2. Postoperative changes again noted within the lower lumbar spine. ACT 112: Negative or not required by law. Electronically signed by: Braxton Olivier M.D. 08/26/2022 9:53 AM
[2022-08-27] MEDS: KETOROLAC TROMETHAMINE 15 MG/ML VIAL IV SCH ×3 (09:16→20:27)
[2022-08-27] MEDS ORDERED: diazePAM 2 MG TABLET PO ONE (09:35)
[2022-08-27] MEDS ORDERED: FLUCONAZOLE 50 MG TAB PO ONE (09:45)
--- NOTE | 2022-08-27 15:23 | Student Report ---
[facility] Med Student Progress Note Advanced Practice Practitioner Student Attestation: No for us in clinical care. Date of Service Date of service: August 27, 2022 Subjective Subjective: No acute events overnight. Pt reports frustration with progression of hip/back pain and is concerned that she will not find relief d/t multiple recent admissions for same issue without positive results. Spoke with patient about experience here so far, and patient states that she feels that there has been some progress with a plan and that she is receiving better care than she has with previous admission. Pt reports that she has a lot of stressors in her life currently and is anxious to get treatment so she can get home to be with her family. Pt reports left hip and lower back pain at 6-7/10. It is worst when she has her hip flexed or lies flat for long periods of time. She feels that her pain is better managed now and would like to continue to work with non- narcotic options if possible. Pt denies any other pain, [place], fever chills, night sweats. Denies CP, SOB, N/V/D. States that she is still constipated and would like to continue with her bowel regimen. She denies any issues with urination. ROS ROS: See above for pertinent positives & negatives. A total of 10 systems reviewed and were otherwise negative. Physical Exam Physical Exam: General: Pt lying in bed. In some distress initially, but has calmed. Converses easily and appropriately. HEENT: Sclera clear, PERRLA, neck supple. Atraumatic. Cardiovascular: S1, S2, RRR, no murmur, rub or gallops. Pulmonary: Anterior sounds CTA bilaterally. Even chest wall expansion. Abdomen: Soft, nontender, nondistended, positive bowel sounds. -flatus, last BM 08/25 Extremities: LACY +5 except left leg +4, no peripheral edema, bilateral pedal pulses +2. Neurologic: A&O x4. Skin: Warm, pink, dry, no rash. Results Results: Short CBC 08/27/22 Range/Units 06:51 WBC 9.33 (4.8-10.8) K/ul Hgb 12.3 (12.0-16.0) g/dl Hct 35.8 (34.1-44.9) % Plt Count 247 (130-400) K/uL [facility] 08/27/22 06:51 Sodium 136 Potassium 4.4 Chloride 105 Carbon Dioxide 24 BUN 31 H Creatinine 0.95 Glucose 162 H Calcium 8.6 Vital Signs 08/27/2022 08:35 Temp 36.5 C Pulse 65 Resp 16 BP 112/73 Pulse Ox 98 Intake & Output 08/26/22 08/27/22 08/27/22 18:59 06:59 18:59 Intake Total / 957 Output Total Balance 957 / 956 - Medication List Hydrocodone Bitart/Acetaminophen (Hydrocodone/Acetamophen 5/325mg Tab) 1 tab PO Q6H PRN Last Admin: 08/27/22 13:23 Dose: 1 tab Cyclobenzaprine HCl (Cyclobenzaprine Hcl 10 Mg Tab) 10 mg PO TID PRN Last Admin: 08/27/22 08:47 Dose: 10 mg Promethazine HCl 6.25 mg/ (Sodium Chloride) 50.25 mls @ 201 mls/hr IV Q6H PRN Last Infusion: 08/26/22 01:10 Cefepime HCl 2,000 mg/ Syringe 20 mls @ 5 mls/min IV Q12H [facility]; Protocol Last Admin: 08/27/22 05:31 Dose: 5 mls/min Insulin Aspart (Insulin Aspart Per Unit) 0 units SC ACHS [facility] Last Admin: 08/27/22 13:16 Dose: Not Given Insulin Glargine (Lantus Per Unit Charge) 20 units SQ HS [facility] Last Admin: 08/26/22 20:29 Dose: 20 units Ketorolac Tromethamine (Ketorolac Tromethamine 15 Mg/Ml Vial) 15 mg IV Q6H [facility] Last Admin: 08/27/22 15:07 Dose: 15 mg Levothyroxine Sodium (Levothyroxine Sodium 75 Mcg Tablet) 75 mcg PO DAILYBB [facility] Last Admin: 08/27/22 05:30 Dose: 75 mcg Lidocaine (Lidocaine 5% 1 Patch) 1 patch TD QAM [facility] Last Admin: 08/27/22 08:35 Dose: 1 patch Miscellaneous (Remove Lidoderm Patch) 1 each N/A DAILY@2100 [facility] Last Admin: 08/26/22 20:33 Dose: Not Given Polyethylene Glycol (Polyethylene (Miralax) 17 Gm Pack) 17 gm PO DAILY PRN Last Admin: 08/27/22 05:42 Dose: 17 gm Senna/Docusate Sodium (Docusate Sodium/Senna 50/8.6mg Tab) 1 tab PO BID ABHINAV Last Admin: 08/27/22 08:31 Dose: 1 tab A&P A&P: 1. Backpain: Continues with left sacroiliitis and left trochanteric bursitis. Pain management recs appreciated, may require bursa injection. Lidocaine patch in place. Scheduled ketorelac IV 15mg last at 1500. Also taking PRN cyclobenzaprine and hydrocodone/acetaminophen. Utilizing heat packs. Per orthospine imaging, no fracture or sublucation within the lumbar spine, trace free pelvic fluid, no intrapelvic abnormality, no acute fracture, dislocation on hip/pelvis xray. 2. UTI: Pt on IV cefepime, received 3 doses. Started 08/26. Culture results obtained from OSH showed barrow sensitive E. Coli. Low suspicion for current infection, awaiting pending cultures. 3. DM: Continue SSI aspart and daily glargine while in patient. Pt tolerates metformin at home. Last A1C 6.8 on 08/25. Hyperglycemic on admission most likely secondary to previous steroid course, BG returning to BL. 4. Hypothyroidism: Continue levothyroxine. Last TSH 0.842 on 08/26. 5. Constipation: Continue bowel regimen. Encourage fluids. 6. VTE: SCDs
--- NOTE | 2022-08-27 15:47 | Hospitalist Progress Note ---
Date of Service August 27, 2022 Assessment & Plan (1) Back pain: Plan: Acute Left sacroiliitis/Left greater trochanteric bursitis MRI Lumbar Spine:No fracture or subluxation within the lumbar spine. Mild disc space narrowing at L2-L3 without significant central canal or neural foraminal narrowing. Postoperative changes at L4-5 and L5-S1. Moderate left-sided neural foraminal narrowing at L5-S1. Hip/Pelvic X ray: No acute fracture or dislocation. Spine Ortho consult -no surgical intervention recommended at this time, advised pain management consult for possible SI joint injection Trialed steroids and hydrocodone as an outpatient without any relief Per pain management -- Patient's pain is primarily in the left greater trochanteric bursa and could consider bursa injection however possible UTI is limiting this currently. Patient does have sacroiliitis on the left but she states that this is chronic pain and not her primary complaint for hospitalization. Could consider SI joint injections on an outpatient basis. Toradol changed to scheduled. Continue Lidoderm patch and as needed Flexeril and [place]. Valium x 1 dose trialed Possible UTI Urine culture report obtained from [facility] from 08/05/22. Noted pansenstive E. Coli. Patient was placed on a course of Keflex however patient states she did not complete the course, she is unsure how many days she took the antibiotic. Denies urinary symptoms. Urine culture from 08/25 contaminated and repeat collection recommended. Urine culture from 08/26 pending. On IV Cefepime (day 3) Budding yeast noted on UA - will give Diflucan x 1 dose Continue current antibiotic pending repeat urine culture result. Doubt active UTI at this time. If repeat urine culture negative, patient can have bursa injection. Constipation Likely due to Narcotics CT ABD:No acute intra-abdominal or intrapelvic abnormality. No bowel obstruction or bowel wall thickening. Normal appendix. Moderate fecal retention. Small hiatal hernia. Continue bowel regimen DM II HbA1c 6.8 Hold oral medications Continue insulin per protocol Hyperglycemia noted on admission, likely due to recent steroid use. Blood sugars now with good control. Hypothyroidism Normal TSH Continue Levothyroxine DVT prophylaxis SCDs Admission and Anticipated Discharge Date Admission Date: August 26, 2022 Supervising Physician Co-Signing Physician Notes Patient is seen and examined at bedside. Complains of worsening lower back pain associated with spasms. No other complaints. On exam patient is thin, mildly in distress secondary to pain, normocephalic atraumatic, EOMI, normal sounds, clear to auscultation, S1-S2, no murmur, abdomen soft, nontender, normal bowel sounds, left SI joint tenderness, no pedal edema, alert, awake, oriented, grossly no focal deficits.Acute Left sacroiliitis--appreciate orthopedics input. Continue pain medications as able. Plan for SI joint injection. Continue cefepime for now for UTI. Follow-up cultures. Continue bowel regimen for constipation. I personally reviewed the record. Patient is interviewed and examined at bedside. Patient's care is coordinated with Tasha Smyth PLANT PROTECTION GUARD. Please refer to the documentation above for details of patient's presentation and for discussion of other issues. Subjective Follow-up for acute left sacroiliitis. Patient seen and examined. Patient complaining of increased pain and lower back spasms today. Pain is localized to her lower back, denies radiation of the pain into either leg. No bowel or bladder dysfunction. Denies chest pain or shortness of breath. No abdominal pain or nausea. Denies urinary symptoms. Review of Systems Review of Systems: ROS per HPI, all other systems reviewed and negative Physical Exam Constitutional: WD/WN, vitals as above Respiratory: normal respiratory effort, lungs clear to auscultation Cardiovascular: Rate/Rhythm: regular rate and regular rhythm Vessels: normal peripheral pulses Extremities: no edema Gastrointestinal (Abdomen): Percussion/Palpation: abdomen soft; abdomen nontender Musculoskeletal: c/o significant lower back pain with minimal movement, unable to roll on to side for further exam, strength strong and equal BLE Skin: no rashes, warm and dry Neurologic: no focal motor deficits Psychiatric: A+Ox3, euthymic affect Results & Data Results & Data ([facility]) Vital Signs (Past 12 Hours) Vital Signs Temp Pulse Resp BP Pulse Ox O2 Del Method 08/27/22 15:18 36.5 C 72 16 113/74 96 Room Air 08/27/22 08:35 36.5 C 65 16 112/73 98 Laboratory Results Short CBC 08/27/22 Range/Units 06:51 WBC 9.33 (4.8-10.8) K/ul Hgb 12.3 (12.0-16.0) g/dl Hct 35.8 (34.1-44.9) % Plt Count 247 (130-400) K/uL BMP 08/27/22 06:51 Sodium 136 Potassium 4.4 Chloride 105 Carbon Dioxide 24 BUN 31 H Creatinine 0.95 Glucose 162 H Calcium 8.6 (1) Back pain Back pain laterality: left Back pain location: low back pain Chronicity: chronic Sciatica laterality: sciatica of left side Sciatica presence: with sciatica Qualified Code(s): M54.42 - Lumbago with sciatica, left side; G89.29 - Other chronic pain
[2022-08-27] MEDS ORDERED: bisacodyL 10 MG SUPP PR PRN (18:36)
[2022-08-27] MEDS: LANTUS PER UNIT CHARGE SQ SCH (21:49)
[2022-08-28] MEDS: KETOROLAC TROMETHAMINE 15 MG/ML VIAL IV SCH ×2 (03:21→08:39)
[2022-08-28] MEDS: LEVOTHYROXINE SODIUM 75 MCG TABLET PO SCH (05:39)
[2022-08-28] MEDS: CEFEPIME 2,000 MG in SYRINGE 0 ML IV SCH (05:39)
[2022-08-28] MEDS: HYDROCODONE/ACETAMOPHEN 5/325MG TAB PO PRN ×3 (05:40→19:51)
[2022-08-28 07:27] LABS: BUN Creatinine Ratio 36.6 (10-20); Creatinine Clr Calc Pharmacy 53.6 ml/min; Est GFR (African American) 70.6 ml/min; Est GFR (Non-African American) 60.9 ml/min; Potassium 4.6 mmol/L (3.5-5.1)
[2022-08-28] MEDS: LIDOCAINE 5% 1 PATCH TD SCH (08:40)
[2022-08-28] MEDS: DOCUSATE SODIUM/SENNA 50/8.6MG TAB PO SCH ×2 (08:40→19:52)
[2022-08-28] MEDS ORDERED: diazePAM 2 MG TABLET PO ONE (08:49)
[2022-08-28] MEDS: INSULIN ASPART PER UNIT SC SCH ×4 (09:06→21:47)
[2022-08-28] MEDS ORDERED: KETOROLAC TROMETHAMINE 15 MG/ML VIAL IV PRN (09:15)
[2022-08-28] MEDS: ACETAMINOPHEN 325 MG TAB PO SCH ×2 (09:46→18:33)
[2022-08-28] MEDS: POLYETHYLENE (MIRALAX) 17 GM PACK PO PRN (12:30)
[2022-08-28] MEDS ORDERED: MAGNESIUM HYDROXIDE SUSP 30 ML UDC PO PRN (12:47)
[2022-08-28] MEDS: BACLOFEN 10 MG TAB PO SCH ×2 (13:29→19:53)
[2022-08-28] MEDS: FAMOTIDINE 20 MG TAB PO SCH ×2 (13:29→19:52)
--- NOTE | 2022-08-28 14:25 | Hospitalist Progress Note ---
Date of Service August 28, 2022 Assessment & Plan (1) Back pain: Plan: Acute Left sacroiliitis/Left greater trochanteric bursitis MRI Lumbar Spine:No fracture or subluxation within the lumbar spine. Mild disc space narrowing at L2-L3 without significant central canal or neural foraminal narrowing. Postoperative changes at L4-5 and L5-S1. Moderate left-sided neural foraminal narrowing at L5-S1. Hip/Pelvic X ray: No acute fracture or dislocation. Spine Ortho consult -no surgical intervention recommended at this time, advised pain management consult for possible SI joint injection Trialed steroids and hydrocodone as an outpatient without any relief Per pain management -- Patient's pain is primarily in the left greater trochanteric bursa and could consider bursa injection however possible UTI is limiting this currently. Patient does have sacroiliitis on the left but she states that this is chronic pain and not her primary complaint for hospitalization. Could consider SI joint injections on an outpatient basis. Toradol changed to scheduled yesterday without much improvement. Will change back to PRN. Discussed with pain management. Repeat urine culture with pinpoint growth. Awaiting final report. Will change Flexeril to scheduled Baclofen. Additional one time dose Valium this AM. Continue Lidoderm patch and [place]. Patient appears very anxious and tearful at times due to family stressors. Suspect that this is contributing to patient's lack of pain control. Patient agreeable to psych consult. Discussed with behavioral health liaison. Possible UTI Urine culture report obtained from [facility] from 08/05/22. Noted pansenstive E. Coli. Patient was placed on a course of Keflex however patient states she did not complete the course, she is unsure how many days she took the antibiotic. Denies urinary symptoms. Urine culture from 08/25 contaminated and repeat collection recommended. Urine culture from 08/26 showing pinpoint growth, final report pending On IV Cefepime (day 4) Budding yeast noted on UA - Diflucan x 1 dose on 08/27 Continue current antibiotic pending repeat urine culture result. Doubt active UTI at this time. If repeat urine culture negative, patient can have bursa injection. Constipation Likely due to Narcotics CT ABD:No acute intra-abdominal or intrapelvic abnormality. No bowel obstruction or bowel wall thickening. Normal appendix. Moderate fecal retention. Small hiatal hernia. No BM yet, will increase Miralax to BID, add PRN MOM. DM II HbA1c 6.8 Hold oral medications Continue Lantus and Novolog per protocol Hyperglycemia noted on admission, likely due to recent steroid use. Blood sugars now with good control. Hypothyroidism Normal TSH Continue Levothyroxine DVT prophylaxis SCDs Admission and Anticipated Discharge Date Admission Date: August 26, 2022 Supervising Physician Co-Signing Physician Notes Patient is seen and examined at bedside. Complains of worsening lower back pain associated with spasms. No other complaints. On exam patient is thin, mildly in distress secondary to pain, normocephalic atraumatic, EOMI, normal sounds, clear to auscultation, S1-S2, no murmur, abdomen soft, nontender, normal bowel sounds, left SI joint tenderness, no pedal edema, alert, awake, oriented, grossly no focal deficits. chronic Left sacroiliitis--follow up outpatient. Left greater trochanteric bursitis - Continue pain medications as able, plan for steroid injection by pain management pending negative repeat urine culture - if positive, will have to be 2 weeks out from resolution of infection for pain injection. Continue cefepime for now for UTI pending repeat cultures. Continue bowel regimen for constipation. I personally reviewed the record. Patient is interviewed and examined at bedside. Patient's care is coordinated with Tasha Smyth FOREST SUPERVISOR. Please refer to the documentation above for details of patient's presentation and for discussion of other issues. Subjective Follow-up for acute left sacroiliitis/left greater trochanteric bursitis. Patient seen and examined. Patient complaining of ongoing left sided low back/buttock/hip pain. Patient tearful and anxious at times talking about family stressors. No BM for several days. Denies abdominal pain and nausea. No urinary symptoms. Denies chest pain or shortness of breath. Review of Systems Review of Systems: ROS per HPI, all other systems reviewed and negative Physical Exam Constitutional: WD/WN, vitals as above Respiratory: normal respiratory effort, lungs clear to auscultation Cardiovascular: Rate/Rhythm: regular rate and regular rhythm Vessels: normal peripheral pulses Extremities: no edema Gastrointestinal (Abdomen): Percussion/Palpation: abdomen soft; abdomen nontender Musculoskeletal: Tenderness over left trochanteric bursa Skin: no rashes, warm and dry Neurologic: no focal motor deficits Psychiatric: Orientation: alert and oriented x 3 Affect: + anxious affect and + tearful affect Results & Data Results & Data ([facility]) Vital Signs (Past 12 Hours) Vital Signs Temp Pulse Resp BP Pulse Ox O2 Del Method 08/28/22 07:26 36.3 C L 78 18 102/69 94 Room Air Laboratory Results [facility] 08/28/22 06:07 Sodium 135 L Potassium 4.6 Chloride 103 Carbon Dioxide 24 BUN 37 H Creatinine 1.01 Glucose 116 H Calcium 9.0 (1) Back pain Back pain laterality: left Back pain location: low back pain Chronicity: chronic Sciatica laterality: sciatica of left side Sciatica presence: with sciatica Qualified Code(s): M54.42 - Lumbago with sciatica, left side; G89.29 - Other chronic pain
[2022-08-28] MEDS: POLYETHYLENE (MIRALAX) 17 GM PACK PO SCH (19:52)
[2022-08-28] MEDS: LANTUS PER UNIT CHARGE SQ SCH (21:48)
[2022-08-29] MEDS: ACETAMINOPHEN 325 MG TAB PO SCH ×3 (03:27→17:55)
[2022-08-29] MEDS: LEVOTHYROXINE SODIUM 75 MCG TABLET PO SCH (05:56)
[2022-08-29] MEDS: HYDROCODONE/ACETAMOPHEN 5/325MG TAB PO PRN ×3 (05:56→21:00)
[2022-08-29 07:27] LABS: Hematocrit (blood only) 42.3 % (34.1-44.9); Hemoglobin 14.2 g/dl (12.0-16.0); Mean Corpuscular Hemoglobin 28.4 pg (25.0-34.0); Mean Corpuscular Hgb Conc 33.6 g/dL (32.0-36.0); Mean Corpuscular Volume 84.6 fL (80.0-100.0); Mean Platelet Volume 9.8 fL (9.4-12.3); Platelet Count 250 K/uL (130-400); RDW Coefficient of Variation 13.5 % (11.5-14.5); RDW Standard Deviation 41.8 fL (36.4-46.3); White Blood Count 6.23 K/ul (4.8-10.8)
[2022-08-29 07:47] LABS: BUN Creatinine Ratio 37.8 (10-20); Creatinine Clr Calc Pharmacy 48.8 ml/min; Est GFR (African American) 62.9 ml/min; Est GFR (Non-African American) 54.3 ml/min; Phosphorus 4.3 mg/dl (2.5-4.9); Potassium 4.6 mmol/L (3.5-5.1)
[2022-08-29 08:03] LABS: INR 0.9 (0.9-1.1); Prothrombin Time 9.8 Seconds (9.0-12.0)
[2022-08-29] MEDS: INSULIN ASPART PER UNIT SC SCH ×5 (08:50→21:02)
[2022-08-29 09:00] LABS: Magnesium 2.2 mg/dl (1.7-2.4)
[2022-08-29] MEDS ORDERED: POLYETHYLENE (MIRALAX) 17 GM PACK PO SCH (09:00)
--- NOTE | 2022-08-29 09:13 | Pain Management Progress Note ---
Date of Service August 29, 2022 Assessment & Plan (1) Greater trochanteric bursitis of left hip: (2) Sacroiliitis: Plan 1. I have offered the patient a left greater trochanteric bursa injection at today's visit. Risks and benefits were reviewed with the patient and she would like to proceed. Please refer to procedure note for further details. 2. Recommend a left SI joint injection on an outpatient basis. 3. I have asked the patient to use the heating pad less often in concern for burning her skin and possible wounds from immobility. Get out of bed and ambulate. 4. Continue current medication regimen. GREATER TROCHANTERIC BURSA INJECTION Diagnosis: Greater Trochanteric Bursitis Performed by: Kristi Galeano PA-C Side: Left Anesthesia:local Material forwarded to lab: none Prior to starting, the diagnosis and the procedure was reviewed with the patient in detail. Possible risks, complications and alternative therapies were also reviewed. All questions were answered. Informed consent was obtained. Allergies and medication list was reviewed. The hip and surrounding tissues was prepped with a prep consisting of Betadine x3. Sterile technique was maintained throughout the procedure. Next, a solution containing 40 mg of triamcinolone acetonide and 6 cc of preservation free 0.50% Ropivacaine was injected via the needle gradually. Patient did not experience any pain, paresthesia or discomfort throughout the injection. Adequate hemostasis was noted. A sterile Band-Aid was applied at the injection site. Admission and Anticipated Discharge Date Admission Date: August 26, 2022 Subjective Katherin's urinalysis culture was positive for yeast and treated with Diflucan. She continues to report significant left hip pain. Currently being treated with Lidocaine patch, Baclofen, Tylenol, Toradol, [place], and a few doses of Valium. Pain is rated 8/10 currently. She does also report pain in the left low back which the heating pad is providing some relief. No radicular symptoms. She describes a heaviness sensation in the left leg. Case discussed with Dr. Rios Physical Exam Physical Exam: GENERAL: This is a 61 year old female that appears anxious. Laying supine in the hospital bed. There is increased pain with movement. HEAD/FACE: Normocephalic and atraumatic. EYES: No drainage or conjunctival injection. ENT: Nose without bleeding or discharge. Oral mucosa moist. NECK: Full ROM without apparent pain. No swelling or masses noted. RESPIRATORY: Patient with unlabored breathing. No signs of respiratory distress. CHEST/AXILLA: Chest movement symmetrical. No deformities noted. BACK: Moves with difficulty. Well healed surgical incision along the lumbar midline. There is focal tenderness along the left SI joint. SKIN: [place], warm and dry. No rash noted. Redness along the entire buttock (from heating pad). No wounds noted. MS/EXTREMITY: There is exquisite tenderness of the left greater trochanteric bursa. Full ROM of the left hip. NEURO: Alert and appears oriented. Speech is fluent. Cranial Nerves are grossly intact. PSYCH: Alert, pleasant.
[2022-08-29] MEDS: DOCUSATE SODIUM/SENNA 50/8.6MG TAB PO SCH ×2 (10:21→21:33)
[2022-08-29] MEDS: FAMOTIDINE 20 MG TAB PO SCH ×2 (10:21→21:01)
[2022-08-29] MEDS: BACLOFEN 10 MG TAB PO SCH ×3 (10:21→21:01)
[2022-08-29] MEDS: LIDOCAINE 5% 1 PATCH TD SCH (10:22)
[2022-08-29] MEDS: POLYETHYLENE (MIRALAX) 17 GM PACK PO SCH ×2 (10:22→21:01)
--- NOTE | 2022-08-29 11:43 | Hospitalist Progress Note ---
Date of Service August 29, 2022 Assessment & Plan (1) Back pain: Plan: Acute Left sacroiliitis/Left greater trochanteric bursitis MRI Lumbar Spine:No fracture or subluxation within the lumbar spine. Mild disc space narrowing at L2-L3 without significant central canal or neural foraminal narrowing. Postoperative changes at L4-5 and L5-S1. Moderate left-sided neural foraminal narrowing at L5-S1. Hip/Pelvic X ray: No acute fracture or dislocation. Spine Ortho consult -no surgical intervention recommended at this time, advised pain management consult for possible SI joint injection Trialed steroids and hydrocodone as an outpatient without any relief - Per pain management -- Patient's pain is primarily in the left greater trochanteric bursa and could consider bursa injection. Patient does have sacroiliitis on the left but she states that this is chronic pain - Could consider SI joint injections on an outpatient basis. - prn toradol - s/p left greater trochanteric bursa steroid injection with pain management 08/29/2022 with significant pain relief per patient. - Continue Lidoderm patch and [place]. - PT/OT evaluation pending. Possible UTI Urine culture report obtained from [facility] from 08/05/22. Noted pansenstive E. Coli. Patient was placed on a course of Keflex however patient states she did not complete the course, she is unsure how many days she took the antibiotic. Denies urinary symptoms. Urine culture from 08/25 contaminated and repeat collection recommended. Urine culture from 08/26 with yeast only - s/p diclucan x1 dose 08/27/2022 discontinued cefepime Constipation Likely due to Narcotics CT ABD:No acute intra-abdominal or intrapelvic abnormality. No bowel obstruction or bowel wall thickening. Normal appendix. Moderate fecal retention. Small hiatal hernia. - aggressive bowel regimen DM II HbA1c 6.8 Hold oral medications Continue Lantus and Novolog per protocol Hyperglycemia noted on admission, likely due to recent steroid use. Blood sugars now with good control. Hypothyroidism Normal TSH Continue Levothyroxine DVT prophylaxis SCDs Admission and Anticipated Discharge Date Admission Date: August 26, 2022 Subjective Patient admitted with chronic low back pain and acute worsening of left hip pain, found to have likely greater trochanteric bursitis cuasing significant pain. Initially thought to have UTI but repeat culture negative. Pain managemnt following and patient is now s/p left hip steroid injection with relief of severe pain. Patient reports improvement in left hip pain after steroid injection this morning. Denies radiation of pain, bladder or fecal incontinence. Able to ambulate to the bathroom but still anxious about weight bearing. Denies chest pain, shortness of breath, n/v/d, abdominal pain. Review of Systems Review of Systems: All systems reviewed & are unremarkable except as noted in Subjective ROS per HPI, all other systems reviewed and negative Physical Exam Physical Exam: Constitutional:L WD/WN, vitals as a lance Respiratory: normal respiratory effort, lungs keith ar to auscultation Cardiovascular:L Rate/Rhythm: regul ar rate and regula r rhythm Vessels: normal peripheral pulses Extremiti es: no edema Gastrointestinal ( Abdomen): Percussion/[place] on: abdomen soft; abdomen nontender Musculoskeletal: Tenderness over le ft trochanteric bu rsa but improved f rom prior exams Skin: no rashes, warm an d dry Neurologic: no focal motor def icits Psychiatric: Orientation: alert and oriented x 3 Affect: mood much improved this [facility] [place] Results & Data Results & Data ([facility]) Vital Signs (Past 12 Hours) Vital Signs Temp Pulse Pulse Resp BP Pulse Ox O2 Del Method 08/29/22 08:42 36.5 C 75 22 112/76 100 Room Air 08/29/22 06:24 36.5 C 77 20 112/76 99 Room Air Diagnostic Findings Laboratory Results WBC 6.23 K/ul (4.8-10.8) 08/29/22 06:59 RBC 5.00 M/uL (3.93-5.22) 08/29/22 06:59 Hgb 14.2 g/dl (12.0-16.0) 08/29/22 06:59 Hct 42.3 % (34.1-44.9) 08/29/22 06:59 MCV 84.6 fL (80.0-100.0) 08/29/22 06:59 MCH 28.4 pg (25.0-34.0) 08/29/22 06:59 MCHC 33.6 g/dL (32.0-36.0) 08/29/22 06:59 RDW Std Deviation 41.8 fL (36.4-46.3) 08/29/22 06:59 RDW Coeff of [place] 13.5 % (11.5-14.5) 08/29/22 06:59 Plt Count 250 K/uL (130-400) 08/29/22 06:59 MPV 9.8 fL (9.4-12.3) 08/29/22 06:59 Immature Gran % (Auto) 0.9 % 08/26/22 06:46 Neut % (Auto) 89.1 % 08/26/22 06:46 Lymph % (Auto) 6.0 % 08/26/22 06:46 [place] % (Auto) 3.7 % 08/26/22 06:46 Eos % (Auto) 0.1 % 08/26/22 06:46 Baso % (Auto) 0.2 % 08/26/22 06:46 Neut # (Auto) 11.32 K/uL (1.4-6.5) H 08/26/22 06:46 Lymph # (Auto) 0.76 K/uL (1.2-3.4) L 08/26/22 06:46 [place] # (Auto) 0.47 K/uL (0.24-0.82) 08/26/22 06:46 Eos # (Auto) 0.01 K/uL (0-0.50) 08/26/22 06:46 Baso # (Auto) 0.02 K/uL (0-0.2) 08/26/22 06:46 Immature Gran # (Auto) 0.12 K/uL (0.00-0.02) H 08/26/22 06:46 PT 9.8 Seconds (9.0-12.0) 08/29/22 06:59 INR 0.9 (0.9-1.1) 08/29/22 06:59 Sodium 137 mmol/L (136-145) 08/29/22 06:59 Potassium 4.6 mmol/L (3.5-5.1) 08/29/22 06:59 Chloride 105 mmol/L (98-107) 08/29/22 06:59 Carbon Dioxide 26 mmol/L (21-32) 08/29/22 06:59 Anion Gap 6 (3-11) 08/29/22 06:59 BUN 42 mg/dl (6-23) H 08/29/22 06:59 Creatinine 1.11 mg/dl (0.6-1.2) 08/29/22 06:59 Est Cr Clr Drug Dosing 48.8 ml/min 08/29/22 06:59 Est GFR ( Amer) 62.9 ml/min 08/29/22 06:59 Est GFR (Non-Af Amer) 54.3 ml/min 08/29/22 06:59 BUN/Creatinine Ratio 37.8 (10-20) H 08/29/22 06:59 Glucose 110 mg/dl (70-99(Fasting)) H 08/29/22 06:59 POC Glucose 217 mg/dl (70-99) H 08/29/22 11:16 Estimat Average Glucose 148 mg/dl 08/25/22 16:31 Hemoglobin A1c 6.8 % (4.5-5.6) H 08/25/22 16:31 Calcium 9.0 mg/dl (8.5-10.1) 08/29/22 06:59 Phosphorus 4.3 mg/dl (2.5-4.9) 08/29/22 06:59 Magnesium 2.2 mg/dl (1.7-2.4) 08/29/22 06:59 Total Bilirubin 0.4 mg/dl (0.2-1.0) 08/25/22 16:31 AST 13 U/L (13-39) 08/25/22 16:31 ALT 28 U/L (7-52) 08/25/22 16:31 Alkaline Phosphatase 49 U/L (34-104) 08/25/22 16:31 Total Protein 6.6 gm/dl (6.0-8.3) 08/25/22 16:31 Albumin 3.7 gm/dl (3.4-5.0) 08/25/22 16:31 Globulin 2.9 gm/dl (2.5-4.0) 08/25/22 16:31 Albumin/Globulin Ratio 1.3 (0.9-2) 08/25/22 16:31 Lipase 101 U/L (11-82) H 08/25/22 16:31 TSH 0.842 uIu/ml (0.300-4.500) 08/26/22 06:46 Urine Color Yellow 08/25/22 18:25 Urine Appearance Cloudy (Clear) A 08/25/22 18:25 Urine pH 5.5 (4.5-7.5) 08/25/22 18:25 Ur Specific [place] > 1.045 (1.000-1.030) H 08/25/22 18:25 Urine Protein Negative (Negative) 08/25/22 18:25 Urine Glucose (UA) Negative (Negative) 08/25/22 18:25 Urine Ketones Negative (Negative) 08/25/22 18:25 Urine Blood Negative (Negative) 08/25/22 18:25 Urine Nitrite Negative (Negative) 08/25/22 18:25 Urine Bilirubin Negative (Negative) 08/25/22 18:25 Urine Urobilinogen Negative (Negative) 08/25/22 18:25 Ur Leukocyte Esterase 2+ (Negative) H 08/25/22 18:25 Urine WBC (Auto) >30 /hpf (0-5) H 08/25/22 18:25 Urine RBC (Auto) 0-4 /hpf (0-4) 08/25/22 18:25 U Hyaline Cast (Auto) 1-5 /lpf (0-5) 08/25/22 18:25 U Epithel Cells (Auto) >30 /lpf (0-5) H 08/25/22 18:25 Urine Bacteria (Auto) Negative (Negative) 08/25/22 18:25 Urine Yeast Budding (None Prsent) A 08/25/22 18:25 SARS-CoV-2, RNA, NAAT NEGATIVE (NEGATIVE) 08/25/22 20:57 Impressions Abdomen/Pelvis CT 08/25/22 16:[address] WITH IV CONTRAST CT DOSE: 303.30 mGy.cm HISTORY: Acute left lower quadrant and left flank pain Left flank and LLQ pain with recent UTI TECHNIQUE: Multiaxial CT images of the abdomen and pelvis were performed following the IV administration of 93 cc of Optiray, A dose lowering technique was utilized adhering to the principles of ALARA. COMPARISON STUDY: Pelvis and hip radiographs of same day FINDINGS: Imaged inferior cardiac chambers are unremarkable. Mild subsegmental bibasilar atelectasis. Likely benign 4 mm solid nodule of the right middle lobe. No pneumatosis or pneumoperitoneum. Unremarkable spleen, pancreas and adrenal glands. Cholecystectomy. Probable hepatic steatosis without evidence of cirrhosis. Patency of the hepatic and portal veins. . Kidneys demonstrate no hydronephrosis. Indeterminate 6 mm area of slightly decreased enhancement within the inferior pole left kidney. This is too small to characterize. Unremarkable urinary bladder. Uterus appears surgically absent. Trace free pelvic fluid. Atherosclerosis of the aorta without aneurysm. No lymphadenopathy. Small hiatal hernia. No bowel obstruction or bowel wall thickening. Moderate colonic fecal retention. Noninflamed appendix. Postoperative changes of the anterior abdominal wall. Small fat filled infraumbilical hernia, diastases of 2.1 cm. Degenerative changes of the spine, pelvis and hips. L4-L5 and L5-S1 discectomy. IMPRESSION: 1. No acute intra-abdominal or intrapelvic abnormality. 2. No bowel obstruction or bowel wall thickening. Normal appendix. 3. Moderate fecal retention. 4. Small hiatal hernia. 5. Trace free pelvic fluid. ACT 112: Negative or not required by law. The above report was generated using voice recognition software. It may contain grammatical, syntax or spelling errors. Electronically signed by: Andrew Pimentel M.D. 08/25/2022 5:45 PM Hip/Pelvis X-Ray 08/25/22 16:19 XR hip LT 2V w pelvis HISTORY: 61 years-old Female left hip pain acute left-sided hip pain COMPARISON: None TECHNIQUE: AP view of the pelvis with 2 views of the left hip FINDINGS: Postoperative changes of the imaged lower lumbar spine with surgical clips of the pelvis. Mild gaseous distention of the rectum with pelvic basin phleboliths. Mild osteoarthritis of the hips. No acute fracture, dislocation or avascular necrosis. IMPRESSION: No acute fracture or dislocation. ACT 112: Negative or not required by law. The above report was generated using voice recognition software. It may contain grammatical, syntax or spelling errors. Electronically signed by: Andrew Pimentel M.D. 08/25/2022 5:14 PM Lumbar Spine MRI 08/25/22 21:32 LUMBAR SPINE MRI HISTORY: worsening back pain, LLE weakness TECHNIQUE: Multiplanar multisequence MRI of the lumbar spine was performed without the use of contrast. COMPARISON: Abdomen and pelvis CT 08/25/2022. FINDINGS: For the purpose of the report the L5-S1 disc space will be located on axial image 26 of 29. Postoperative changes at L4-L5 and L5-S1 suggesting prior discectomies. The conus terminates at the L2 level. Straightening of the lumbar spine. No fracture or subluxation. The visualized sacrum is intact. Mild disc space narrowing at L2-L3. L1-L2: No significant central canal or neural foraminal narrowing. L2-L3: No significant central canal or neural foraminal narrowing. Small broad- based posterior disc bulge. L3-L4: No significant central canal or neural foraminal narrowing. L4-L5: No significant central canal or neural foraminal narrowing. L5-S1: Moderate left-sided neural foraminal narrowing. No significant central canal or right-sided neural foraminal narrowing. IMPRESSION: 1. No fracture or subluxation within the lumbar spine. 2. Mild disc space narrowing at L2-L3 without significant central canal or neural foraminal narrowing. 3. Postoperative changes at L4-5 and L5-S1. 4. Moderate left-sided neural foraminal narrowing at L5-S1. ACT 112: Negative or not required by law. Electronically signed by: Braxton Olivier M.D. 08/26/2022 7:31 AM Lumbar Spine X-Ray 08/26/22 07:48 XR lumbar spine min 4V routine CLINICAL HISTORY: Low back pain. COMPARISON STUDY: Lumbar spine MRI 08/25/2022. FINDINGS: Contrast within the bladder from the prior CT examination. There is prior cholecystectomy. Large amount well-formed stool seen throughout the colon. No fracture or subluxation within the lumbar spine. Intervertebral cages and fusion from L4 through S1. Remaining disc spaces are preserved. No acute fracture or subluxation. The sacrum is intact. IMPRESSION: 1. No fracture or subluxation within the lumbar spine. 2. Postoperative changes again noted within the lower lumbar spine. ACT 112: Negative or not required by law. Electronically signed by: Braxton Olivier M.D. 08/26/2022 9:53 AM Medications Administered Current Inpatient Medications Acetaminophen (Acetaminophen 325 Mg Tab) 650 mg PO Q8H ABHINAV Stop: 09/27/22 09:59 Last Admin: 08/29/22 10:30 Dose: 325 mg Hydrocodone Bitart/Acetaminophen (Hydrocodone/Acetamophen 5/325mg Tab) 1 tab PO Q6H PRN PRN Reason: Back Pain Stop: 09/08/22 23:55 Last Admin: 08/29/22 05:56 Dose: 1 tab Baclofen (Baclofen 10 Mg Tab) 10 mg PO TID [facility] Stop: 09/27/22 13:59 Last Admin: 08/29/22 10:21 Dose: 10 mg Bisacodyl (Bisacodyl 10 Mg Supp) 10 mg VT BID PRN PRN Reason: Constipation Stop: 09/26/22 18:35 Last Admin: 08/28/22 09:36 Dose: 10 mg Dextrose (Dextrose 50% 50 Ml Syringe) 25 - 50 ml IV UD PRN; Protocol PRN Reason: Hypoglycemia Protocol Stop: 09/24/22 23:55 Famotidine (Famotidine 20 Mg Tab) 20 mg PO BID [facility] Stop: 09/27/22 13:04 Last Admin: 08/29/22 10:21 Dose: 20 mg Glucagon (Glucagon For Inj 1 Mg Vial) 1 mg SQ UD PRN; Protocol PRN Reason: Hypoglycemia Protocol Stop: 09/24/22 23:55 Glucose (Glucose 40% Gel 15 Gm Tube) 15 - 30 gm PO UD PRN; Protocol PRN Reason: Hypoglycemia Protocol Stop: 09/24/22 23:55 Glucose (Glucose 10 Tab/Tube) 4 - 8 tab PO UD PRN; Protocol PRN Reason: Hypoglycemia Treatment Stop: 09/24/22 23:55 Promethazine HCl 6.25 mg/ (Sodium Chloride) 50.25 mls @ 201 mls/hr IV Q6H PRN PRN Reason: Nausea And Vomiting Stop: 09/24/22 21:30 Last Infusion: 08/26/22 01:10 Dose: Infused Insulin Aspart (Insulin Aspart Per Unit) 0 units SC ACHS [facility] Stop: 09/25/22 05:59 Last Admin: 08/29/22 10:28 Dose: 3 units Insulin Glargine (Lantus Per Unit Charge) 20 units SQ HS [facility] Stop: 09/25/22 20:59 Last Admin: 08/28/22 21:48 Dose: 20 units Ketorolac Tromethamine (Ketorolac Tromethamine 15 Mg/Ml Vial) 15 mg IV Q6H PRN PRN Reason: moderate pain Stop: 08/31/22 09:01 Levothyroxine Sodium (Levothyroxine Sodium 75 Mcg Tablet) 75 mcg PO DAILYBB [facility] Stop: 09/25/22 06:29 Last Admin: 08/29/22 05:56 Dose: 75 mcg Lidocaine (Lidocaine 5% 1 Patch) 1 patch TD QAM [facility] Stop: 09/24/22 21:34 Last Admin: 08/29/22 10:22 Dose: 1 patch Lorazepam (Lorazepam 0.5 Mg Tab) 0.25 mg PO TID PRN PRN Reason: Anxiety Stop: 09/24/22 21:30 Magnesium Hydroxide (Magnesium Hydroxide Susp 30 Ml Udc) 30 ml PO DAILY PRN PRN Reason: constipation Stop: 09/27/22 12:46 Miscellaneous (Remove Lidoderm Patch) 1 each N/A DAILY@2100 [facility] Stop: 09/25/22 08:59 Last Admin: 08/28/22 19:53 Dose: 1 each Miscellaneous (Carbohydrates For Hypoglycemia ) 15 - 30 gm PO UD PRN PRN Reason: Hypoglycemia Protocol Stop: 09/24/22 23:55 Polyethylene Glycol (Polyethylene (Miralax) 17 Gm Pack) 17 gm PO BID [facility] Stop: 09/27/22 20:59 Last Admin: 08/29/22 10:22 Dose: 17 gm Senna/Docusate Sodium (Docusate Sodium/Senna 50/8.6mg Tab) 1 tab PO BID [facility] Stop: 09/25/22 08:59 Last Admin: 08/29/22 10:21 Dose: 1 tab (1) Back pain Back pain laterality: left Back pain location: low back pain Chronicity: chronic Sciatica laterality: sciatica of left side Sciatica presence: with sciatica Qualified Code(s): M54.42 - Lumbago with sciatica, left side; G89.29 - Other chronic pain
[2022-08-29] MEDS: PROMETHAZINE HCL 6.25 MG in SODIUM CHLORIDE 0.9% 50 ML IV PRN (12:57)
[2022-08-29] MEDS: LANTUS PER UNIT CHARGE SQ SCH ×2 (21:33→23:52)
[2022-08-30] MEDS: ACETAMINOPHEN 325 MG TAB PO SCH ×3 (02:37→17:51)
[2022-08-30] MEDS: HYDROCODONE/ACETAMOPHEN 5/325MG TAB PO PRN ×3 (02:54→15:13)
[2022-08-30] MEDS: LEVOTHYROXINE SODIUM 75 MCG TABLET PO SCH (06:06)
[2022-08-30] MEDS: LIDOCAINE 5% 1 PATCH TD SCH (08:06)
[2022-08-30] MEDS: BACLOFEN 10 MG TAB PO SCH ×3 (08:06→20:51)
[2022-08-30] MEDS: DOCUSATE SODIUM/SENNA 50/8.6MG TAB PO SCH ×2 (08:06→20:51)
[2022-08-30] MEDS: FAMOTIDINE 20 MG TAB PO SCH ×2 (08:06→20:52)
[2022-08-30] MEDS: POLYETHYLENE (MIRALAX) 17 GM PACK PO SCH ×3 (08:07→20:50)
--- NOTE | 2022-08-30 08:57 | Pain Management Progress Note ---
Date of Service August 30, 2022 Assessment & Plan (1) Greater trochanteric bursitis of left hip: (2) Sacroiliitis: (3) Anxiety disorder: Plan Patient is reporting significant pain this morning. She is not opening up her eyes to speak with me. Very anxious. Appears more so an anxiety attack although she denies. I have ordered her Valium 2mg PO BID for anxiety/muscle spasms to see if that may help. Continue lidocaine patch, [place], Toradol. Recommend outpatient left SI joint injection. Admission and Anticipated Discharge Date Admission Date: August 26, 2022 Eric Pandey is reporting significant back pain this morning. The left hip pain has improved. She reports nausea yesterday. Was given Phenergan and slept most of the day. No radicular symptoms down the legs. She is receiving lidocaine patch, [place], Toradol. Physical Exam Physical Exam: GENERAL: This is a 61 year old female that was sleeping when I walked in and when awoken she is reporting 10/10 pain. Not opening her eyes to speak with me. BACK: Moves with difficulty. Well healed surgical incision along the lumbar midline. There is focal tenderness along the left SI joint. SKIN: [place], warm and dry. No rash noted. Redness along the entire buttock (from heating pad). No wounds noted. MS/EXTREMITY: There is mild tenderness of the left greater trochanteric bursa. Full ROM of the left hip. NEURO: Alert and appears oriented. Speech is fluent. Cranial Nerves are grossly intact. PSYCH: Alert, anxious.
[2022-08-30] MEDS: diazePAM 2 MG TABLET PO PRN (09:09)
[2022-08-30] MEDS: INSULIN ASPART PER UNIT SC SCH ×4 (09:14→20:47)
--- NOTE | 2022-08-30 11:58 | Hospitalist Progress Note ---
Date of Service August 30, 2022 Assessment & Plan (1) Back pain: Plan: Acute Left sacroiliitis/Left greater trochanteric bursitis MRI Lumbar Spine:No fracture or subluxation within the lumbar spine. Mild disc space narrowing at L2-L3 without significant central canal or neural foraminal narrowing. Postoperative changes at L4-5 and L5-S1. Moderate left-sided neural foraminal narrowing at L5-S1. Hip/Pelvic X ray: No acute fracture or dislocation. Spine Ortho consult -no surgical intervention recommended at this time, advised pain management consult for possible SI joint injection Trialed steroids and hydrocodone as an outpatient without any relief - Per pain management -- Patient's pain is primarily in the left greater trochanteric bursa and could consider bursa injection. Patient does have sacroiliitis on the left but she states that this is chronic pain - Could consider SI joint injections on an outpatient basis. - prn toradol - s/p left greater trochanteric bursa steroid injection with pain management 08/29/2022 with significant pain relief per patient but relapsed with severe pain this morning - Continue Lidoderm patch and Penrose. - PT/OT evaluation ok for home. Constipation Likely due to Narcotics CT ABD:No acute intra-abdominal or intrapelvic abnormality. No bowel obstruction or bowel wall thickening. Normal appendix. Moderate fecal retention. Small hiatal hernia. - aggressive bowel regimen DM II HbA1c 6.8 Hold oral medications Continue Lantus and Novolog per protocol Hypothyroidism Normal TSH Continue Levothyroxine DVT prophylaxis SCDs Admission and Anticipated Discharge Date Admission Date: August 26, 2022 Subjective Patient admitted with chronic low back pain and acute worsening of left hip pain, found to have likely greater trochanteric bursitis cuasing significant pain. Initially thought to have UTI but repeat culture negative. Pain managemnt following and patient is now s/p left hip steroid injection with relief of severe pain. Patient complains of excruciating pain in left hip this morning, did not sleep well. Denies chest pain, shortness of breath, n/v/d, abdominal pain. Review of Systems Review of Systems: ROS per HPI, all other systems reviewed and negative Physical Exam Physical Exam: Constitutional:L WD/WN, vitals as a lance Respiratory: normal respiratory effort, lungs keith ar to auscultation Cardiovascular:L Rate/Rhythm: regul ar rate and regula r rhythm Vessels: normal peripheral pulses Extremiti es: no edema Gastrointestinal ( Abdomen): Percussion/Palpati on: abdomen soft; abdomen nontender Musculoskeletal: Tenderness over le ft trochanteric bu rsa Skin: no rashes, warm an d dry Neurologic: no focal motor def icits Psychiatric: Orientation: alert and oriented x 3 Affect: mood much improved this carlita freire Results & Data Results & Data ([facility]) Vital Signs (Past 12 Hours) Vital Signs Temp Pulse Resp BP Pulse Ox O2 Del Method 08/30/22 07:37 36.7 C 89 18 119/80 95 Room Air Diagnostic Findings Laboratory Results WBC 6.23 K/ul (4.8-10.8) 08/29/22 06:59 RBC 5.00 M/uL (3.93-5.22) 08/29/22 06:59 Hgb 14.2 g/dl (12.0-16.0) 08/29/22 06:59 Hct 42.3 % (34.1-44.9) 08/29/22 06:59 MCV 84.6 fL (80.0-100.0) 08/29/22 06:59 MCH 28.4 pg (25.0-34.0) 08/29/22 06:59 MCHC 33.6 g/dL (32.0-36.0) 08/29/22 06:59 RDW Std Deviation 41.8 fL (36.4-46.3) 08/29/22 06:59 RDW Coeff of [place] 13.5 % (11.5-14.5) 08/29/22 06:59 Plt Count 250 K/uL (130-400) 08/29/22 06:59 MPV 9.8 fL (9.4-12.3) 08/29/22 06:59 Immature Gran % (Auto) 0.9 % 08/26/22 06:46 Neut % (Auto) 89.1 % 08/26/22 06:46 Lymph % (Auto) 6.0 % 08/26/22 06:46 [place] % (Auto) 3.7 % 08/26/22 06:46 Eos % (Auto) 0.1 % 08/26/22 06:46 Baso % (Auto) 0.2 % 08/26/22 06:46 Neut # (Auto) 11.32 K/uL (1.4-6.5) H 08/26/22 06:46 Lymph # (Auto) 0.76 K/uL (1.2-3.4) L 08/26/22 06:46 Donley # (Auto) 0.47 K/uL (0.24-0.82) 08/26/22 06:46 Eos # (Auto) 0.01 K/uL (0-0.50) 08/26/22 06:46 Baso # (Auto) 0.02 K/uL (0-0.2) 08/26/22 06:46 Immature Gran # (Auto) 0.12 K/uL (0.00-0.02) H 08/26/22 06:46 PT 9.8 Seconds (9.0-12.0) 08/29/22 06:59 INR 0.9 (0.9-1.1) 08/29/22 06:59 Sodium 137 mmol/L (136-145) 08/29/22 06:59 Potassium 4.6 mmol/L (3.5-5.1) 08/29/22 06:59 Chloride 105 mmol/L (98-107) 08/29/22 06:59 Carbon Dioxide 26 mmol/L (21-32) 08/29/22 06:59 Anion Gap 6 (3-11) 08/29/22 06:59 BUN 42 mg/dl (6-23) H 08/29/22 06:59 Creatinine 1.11 mg/dl (0.6-1.2) 08/29/22 06:59 Est Cr Clr Drug Dosing 48.8 ml/min 08/29/22 06:59 Est GFR ( Amer) 62.9 ml/min 08/29/22 06:59 Est GFR (Non-Af Amer) 54.3 ml/min 08/29/22 06:59 BUN/Creatinine Ratio 37.8 (10-20) H 08/29/22 06:59 Glucose 110 mg/dl (70-99(Fasting)) H 08/29/22 06:59 POC Glucose 158 mg/dl (70-99) H 08/30/22 08:10 Estimat Average Glucose 148 mg/dl 08/25/22 16:31 Hemoglobin A1c 6.8 % (4.5-5.6) H 08/25/22 16:31 Calcium 9.0 mg/dl (8.5-10.1) 08/29/22 06:59 Phosphorus 4.3 mg/dl (2.5-4.9) 08/29/22 06:59 Magnesium 2.2 mg/dl (1.7-2.4) 08/29/22 06:59 Total Bilirubin 0.4 mg/dl (0.2-1.0) 08/25/22 16:31 AST 13 U/L (13-39) 08/25/22 16:31 ALT 28 U/L (7-52) 08/25/22 16:31 Alkaline Phosphatase 49 U/L (34-104) 08/25/22 16:31 Total Protein 6.6 gm/dl (6.0-8.3) 08/25/22 16:31 Albumin 3.7 gm/dl (3.4-5.0) 08/25/22 16:31 Globulin 2.9 gm/dl (2.5-4.0) 08/25/22 16:31 Albumin/Globulin Ratio 1.3 (0.9-2) 08/25/22 16:31 Lipase 101 U/L (11-82) H 08/25/22 16:31 TSH 0.842 uIu/ml (0.300-4.500) 08/26/22 06:46 Urine Color Yellow 08/25/22 18:25 Urine Appearance Cloudy (Clear) A 08/25/22 18:25 Urine pH 5.5 (4.5-7.5) 08/25/22 18:25 Ur Specific [place] > 1.045 (1.000-1.030) H 08/25/22 18:25 Urine Protein Negative (Negative) 08/25/22 18:25 Urine Glucose (UA) Negative (Negative) 08/25/22 18:25 Urine Ketones Negative (Negative) 08/25/22 18:25 Urine Blood Negative (Negative) 08/25/22 18:25 Urine Nitrite Negative (Negative) 08/25/22 18:25 Urine Bilirubin Negative (Negative) 08/25/22 18:25 Urine Urobilinogen Negative (Negative) 08/25/22 18:25 Ur Leukocyte Esterase 2+ (Negative) H 08/25/22 18:25 Urine WBC (Auto) >30 /hpf (0-5) H 08/25/22 18:25 Urine RBC (Auto) 0-4 /hpf (0-4) 08/25/22 18:25 U Hyaline Cast (Auto) 1-5 /lpf (0-5) 08/25/22 18:25 U Epithel Cells (Auto) >30 /lpf (0-5) H 08/25/22 18:25 Urine Bacteria (Auto) Negative (Negative) 08/25/22 18:25 Urine Yeast Budding (None Prsent) A 08/25/22 18:25 SARS-CoV-2, RNA, NAAT NEGATIVE (NEGATIVE) 08/25/22 20:57 Impressions Abdomen/Pelvis CT 08/25/22 16:[address] WITH IV CONTRAST CT DOSE: 303.30 mGy.cm HISTORY: Acute left lower quadrant and left flank pain Left flank and LLQ pain with recent UTI TECHNIQUE: Multiaxial CT images of the abdomen and pelvis were performed fol lowing the IV administration of 93 cc of Optiray, A dose lowering technique was utilized adhering to the principles of ALARA. COMPARISON STUDY: Pelvis and hip radiographs of same day FINDINGS: Imaged inferior cardiac chambers are unremarkable. Mild subsegmental bibasilar atelectasis. Likely benign 4 mm solid nodule of the right middle lobe. No pneumatosis or pneumoperitoneum. Unremarkable spleen, pancreas and adrenal glands. Cholecystectomy. Probable hepatic steatosis without evidence of cirrhosis. Patency of the hepatic and portal veins. . Kidneys demonstrate no hydronephrosis. Indeterminate 6 mm area of slightly decreased enhancement within the inferior pole left kidney. This is too small to characterize. Unremarkable urinary bladder. Uterus appears surgically absent. Trace free pelvic fluid. Atherosclerosis of the aorta without aneurysm. No lymphadenopathy. Small hiatal hernia. No bowel obstruction or bowel wall thickening. Moderate colonic fecal retention. Noninflamed appendix. Postoperative changes of the anterior abdominal wall. Small fat filled infraumbilical hernia, diastases of 2.1 cm. Degenerative changes of the spine, pelvis and hips. L4-L5 and L5-S1 discectomy. IMPRESSION: 1. No acute intra-abdominal or intrapelvic abnormality. 2. No bowel obstruction or bowel wall thickening. Normal appendix. 3. Moderate fecal retention. 4. Small hiatal hernia. 5. Trace free pelvic fluid. ACT 112: Negative or not required by law. The above report was generated using voice recognition software. It may contain grammatical, syntax or spelling errors. Electronically signed by: Andrew Pimentel M.D. 08/25/2022 5:45 PM Hip/Pelvis X-Ray 08/25/22 16:19 XR hip LT 2V w pelvis HISTORY: 61 years-old Female left hip pain acute left-sided hip pain COMPARISON: None TECHNIQUE: AP view of the pelvis with 2 views of the left hip FINDINGS: Postoperative changes of the imaged lower lumbar spine with surgical clips of the pelvis. Mild gaseous distention of the rectum with pelvic basin phleboliths. Mild osteoarthritis of the hips. No acute fracture, dislocation or avascular necrosis. IMPRESSION: No acute fracture or dislocation. ACT 112: Negative or not required by law. The above report was generated using voice recognition software. It may contain grammatical, syntax or spelling errors. Electronically signed by: Andrew Pimentel M.D. 08/25/2022 5:14 PM Lumbar Spine MRI 08/25/22 21:32 LUMBAR SPINE MRI HISTORY: worsening back pain, LLE weakness TECHNIQUE: Multiplanar multisequence MRI of the lumbar spine was performed without the use of contrast. COMPARISON: Abdomen and pelvis CT 08/25/2022. FINDINGS: For the purpose of the report the L5-S1 disc space will be located on axial image 26 of 29. Postoperative changes at L4-L5 and L5-S1 suggesting prior discectomies. The conus terminates at the L2 level. Straightening of the lumbar spine. No fracture or subluxation. The visualized sacrum is intact. Mild disc space narrowing at L2-L3. L1-L2: No significant central canal or neural foraminal narrowing. L2-L3: No significant central canal or neural foraminal narrowing. Small broad- based posterior disc bulge. L3-L4: No significant central canal or neural foraminal narrowing. L4-L5: No significant central canal or neural foraminal narrowing. L5-S1: Moderate left-sided neural foraminal narrowing. No significant central canal or right-sided neural foraminal narrowing. IMPRESSION: 1. No fracture or subluxation within the lumbar spine. 2. Mild disc space narrowing at L2-L3 without significant central canal or neural foraminal narrowing. 3. Postoperative changes at L4-5 and L5-S1. 4. Moderate left-sided neural foraminal narrowing at L5-S1. ACT 112: Negative or not required by law. Electronically signed by: Braxton Olivier M.D. 08/26/2022 7:31 AM Lumbar Spine X-Ray 08/26/22 07:48 XR lumbar spine min 4V routine CLINICAL HISTORY: Low back pain. COMPARISON STUDY: Lumbar spine MRI 08/25/2022. FINDINGS: Contrast within the bladder from the prior CT examination. There is prior cholecystectomy. Large amount well-formed stool seen throughout the colon. No fracture or subluxation within the lumbar spine. Intervertebral cages and fusion from L4 through S1. Remaining disc spaces are preserved. No acute fracture or subluxation. The sacrum is intact. IMPRESSION: 1. No fracture or subluxation within the lumbar spine. 2. Postoperative changes again noted within the lower lumbar spine. ACT 112: Negative or not required by law. Electronically signed by: Braxton Olivier M.D. 08/26/2022 9:53 AM Medications Administered Current Inpatient Medications Acetaminophen (Acetaminophen 325 Mg Tab) 650 mg PO Q8H ABHINAV Stop: 09/27/22 09:59 Last Admin: 08/30/22 09:14 Dose: Not Given Hydrocodone Bitart/Acetaminophen (Hydrocodone/Acetamophen 5/325mg Tab) 1 tab PO Q6H PRN PRN Reason: Back Pain Stop: 09/08/22 23:55 Last Admin: 08/30/22 09:08 Dose: 1 tab Baclofen (Baclofen 10 Mg Tab) 10 mg PO TID ABHINAV Stop: 09/27/22 13:59 Last Admin: 08/30/22 08:06 Dose: 10 mg Bisacodyl (Bisacodyl 10 Mg Supp) 10 mg RI BID PRN PRN Reason: Constipation Stop: 09/26/22 18:35 Last Admin: 08/28/22 09:36 Dose: 10 mg Dextrose (Dextrose 50% 50 Ml Syringe) 25 - 50 ml IV UD PRN; Protocol PRN Reason: Hypoglycemia Protocol Stop: 09/24/22 23:55 Diazepam (Diazepam 2 Mg Tablet) 2 mg PO BID PRN PRN Reason: spasm/anxiety Stop: 09/29/22 08:24 Last Admin: 08/30/22 09:09 Dose: 2 mg Famotidine (Famotidine 20 Mg Tab) 20 mg PO BID ABHINAV Stop: 09/27/22 13:04 Last Admin: 08/30/22 08:06 Dose: 20 mg Glucagon (Glucagon For Inj 1 Mg Vial) 1 mg SQ UD PRN; Protocol PRN Reason: Hypoglycemia Protocol Stop: 09/24/22 23:55 Glucose (Glucose 40% Gel 15 Gm Tube) 15 - 30 gm PO UD PRN; Protocol PRN Reason: Hypoglycemia Protocol Stop: 09/24/22 23:55 Glucose (Glucose 10 Tab/Tube) 4 - 8 tab PO UD PRN; Protocol PRN Reason: Hypoglycemia Treatment Stop: 09/24/22 23:55 Promethazine HCl 6.25 mg/ (Sodium Chloride) 50.25 mls @ 201 mls/hr IV Q6H PRN PRN Reason: Nausea And Vomiting Stop: 09/24/22 21:30 Last Infusion: 08/29/22 13:17 Dose: Infused Insulin Aspart (Insulin Aspart Per Unit) 0 units SC ACHS ABHINAV Stop: 09/25/22 05:59 Last Admin: 08/30/22 09:14 Dose: 1 units Insulin Glargine (Lantus Per Unit Charge) 20 units SQ HS ABHINAV Stop: 09/25/22 20:59 Last Admin: 08/29/22 23:52 Dose: 20 units Ketorolac Tromethamine (Ketorolac Tromethamine 15 Mg/Ml Vial) 15 mg IV Q6H PRN PRN Reason: moderate pain Stop: 08/31/22 09:01 Last Admin: 08/30/22 06:07 Dose: 15 mg Levothyroxine Sodium (Levothyroxine Sodium 75 Mcg Tablet) 75 mcg PO DAILYBB ABHINAV Stop: 09/25/22 06:29 Last Admin: 08/30/22 06:06 Dose: 75 mcg Lidocaine (Lidocaine 5% 1 Patch) 1 patch TD QAM ABHINAV Stop: 09/24/22 21:34 Last Admin: 08/30/22 08:06 Dose: 1 patch Lorazepam (Lorazepam 0.5 Mg Tab) 0.25 mg PO TID PRN PRN Reason: Anxiety Stop: 09/24/22 21:30 Magnesium Hydroxide (Magnesium Hydroxide Susp 30 Ml Udc) 30 ml PO DAILY PRN PRN Reason: constipation Stop: 09/27/22 12:46 Miscellaneous (Remove Lidoderm Patch) 1 each N/A DAILY@2100 [facility] Stop: 09/25/22 08:59 Last Admin: 08/29/22 21:02 Dose: 1 each Miscellaneous (Carbohydrates For Hypoglycemia ) 15 - 30 gm PO UD PRN PRN Reason: Hypoglycemia Protocol Stop: 09/24/22 23:55 Polyethylene Glycol (Polyethylene (Miralax) 17 Gm Pack) 17 gm PO BID [facility] Stop: 09/27/22 20:59 Last Admin: 08/30/22 08:07 Dose: 17 gm Senna/Docusate Sodium (Docusate Sodium/Senna 50/8.6mg Tab) 1 tab PO BID [facility] Stop: 09/25/22 08:59 Last Admin: 08/30/22 08:06 Dose: 1 tab (1) Back pain Back pain laterality: left Back pain location: low back pain Chronicity: chronic Sciatica laterality: sciatica of left side Sciatica presence: with sciatica Qualified Code(s): M54.42 - Lumbago with sciatica, left side; G89.29 - Other chronic pain
[2022-08-30] MEDS: LANTUS PER UNIT CHARGE SQ SCH (21:47)
[2022-08-31] MEDS: ACETAMINOPHEN 325 MG TAB PO SCH ×3 (02:13→17:48)
[2022-08-31] MEDS: LEVOTHYROXINE SODIUM 75 MCG TABLET PO SCH (05:53)
[2022-08-31 06:40] LABS: Basophils # (auto) 0.05 K/uL (0-0.2); Basophils % (auto) 0.7 %; Eosinophils # (auto) 0.28 K/uL (0-0.50); Eosinophils % (auto) 3.7 %; Hematocrit (blood only) 45.5 % (34.1-44.9); Hemoglobin 15.7 g/dl (12.0-16.0); Immature Granulocytes # (auto) 0.07 K/uL (0.00-0.02); Immature Granulocytes % (auto) 0.9 %; Lymphocytes # (auto) 2.01 K/uL (1.2-3.4); Lymphocytes % (auto) 26.4 %; Mean Corpuscular Hemoglobin 28.6 pg (25.0-34.0); Mean Corpuscular Hgb Conc 34.5 g/dL (32.0-36.0); Mean Corpuscular Volume 82.9 fL (80.0-100.0); Mean Platelet Volume 9.6 fL (9.4-12.3); Monocytes # (auto) 0.52 K/uL (0.24-0.82); Monocytes % (auto) 6.8 %; Neutrophils # (auto) 4.69 K/uL (1.4-6.5); Neutrophils % (auto) 61.5 %; Platelet Count 298 K/uL (130-400); RDW Coefficient of Variation 13.5 % (11.5-14.5); RDW Standard Deviation 40.9 fL (36.4-46.3); Red Blood Count 5.49 M/uL (3.93-5.22); White Blood Count 7.62 K/ul (4.8-10.8)
[2022-08-31 07:38] LABS: Albumin Globulin Ratio 1.4 (0.9-2); Albumin Level 4.4 gm/dl (3.4-5.0); BUN Creatinine Ratio 35.4 (10-20); Bilirubin,Total 0.6 mg/dl (0.2-1.0); Calcium 9.9 mg/dl (8.5-10.1); Creatinine Clr Calc Pharmacy 54.7 ml/min; Est GFR (African American) 72.3 ml/min; Est GFR (Non-African American) 62.4 ml/min; Globulin 3.2 gm/dl (2.5-4.0); Magnesium 1.9 mg/dl (1.7-2.4); Phosphorus 4.8 mg/dl (2.5-4.9); Potassium 4.8 mmol/L (3.5-5.1); Total Protein 7.6 gm/dl (6.0-8.3)
[2022-08-31] MEDS: HYDROCODONE/ACETAMOPHEN 5/325MG TAB PO PRN ×2 (08:22→16:30)
[2022-08-31] MEDS: FAMOTIDINE 20 MG TAB PO SCH ×2 (09:39→21:10)
[2022-08-31] MEDS: DOCUSATE SODIUM/SENNA 50/8.6MG TAB PO SCH ×2 (09:39→21:10)
[2022-08-31] MEDS: BACLOFEN 10 MG TAB PO SCH ×2 (09:39→21:10)
[2022-08-31] MEDS: POLYETHYLENE (MIRALAX) 17 GM PACK PO SCH ×2 (09:40→21:11)
[2022-08-31] MEDS: LIDOCAINE 5% 1 PATCH TD SCH (09:41)
[2022-08-31] MEDS: INSULIN ASPART PER UNIT SC SCH ×4 (10:27→21:09)
[2022-08-31] MEDS ORDERED: DICLOFENAC SOD 1% GEL 100 GM TUBE EXT PRN (11:30)
[2022-08-31] MEDS: NAPROXEN 375 MG TAB PO SCH ×2 (12:15→21:11)
--- NOTE | 2022-08-31 12:42 | Hospitalist Progress Note ---
Date of Service August 31, 2022 Assessment & Plan (1) Back pain: Plan: Acute Left sacroiliitis/Left greater trochanteric bursitis MRI Lumbar Spine:No fracture or subluxation within the lumbar spine. Mild disc space narrowing at L2-L3 without significant central canal or neural foraminal narrowing. Postoperative changes at L4-5 and L5-S1. Moderate left-sided neural foraminal narrowing at L5-S1. Hip/Pelvic X ray: No acute fracture or dislocation. Spine Ortho consult -no surgical intervention recommended at this time, advised pain management consult for possible SI joint injection Trialed steroids and hydrocodone as an outpatient without any relief - Per pain management -- Patient's pain is primarily in the left greater trochanteric bursa and could consider bursa injection. Patient does have sacroiliitis on the left but she states that this is chronic pain - Could consider SI joint injections on an outpatient basis. - prn toradol - s/p left greater trochanteric bursa steroid injection with pain management 08/29/2022 with significant pain relief per patient but relapsed with a lot of pain per patient - nontender to palpation - Continue Lidoderm patch and [place]. - started on scheduled naproxen BID for 2 weeks - PT/OT evaluation ok for home with HH Constipation Likely due to Narcotics CT ABD:No acute intra-abdominal or intrapelvic abnormality. No bowel obstruction or bowel wall thickening. Normal appendix. Moderate fecal retention. Small hiatal hernia. - aggressive bowel regimen DM II HbA1c 6.8 Hold oral medications Continue Lantus and Novolog per protocol Hypothyroidism Normal TSH Continue Levothyroxine DVT prophylaxis SCDs Admission and Anticipated Discharge Date Admission Date: August 26, 2022 Subjective Patient admitted with chronic low back pain and acute worsening of left hip pain, found to have likely greater trochanteric bursitis cuasing significant pain. Initially thought to have UTI but repeat culture negative. Pain managemnt following and patient is now s/p left hip steroid injection with relief of severe pain. Patient complains of pain in left hip this morning, did not sleep well. Denies chest pain, shortness of breath, n/v/d, abdominal pain. Review of Systems Review of Systems: ROS per HPI, all other systems reviewed and negative Physical Exam Physical Exam: Constitutional:L WD/WN, vitals as a lance Respiratory: normal respiratory effort, lungs keith ar to auscultation Cardiovascular:L Rate/Rhythm: regul ar rate and regula r rhythm Vessels: normal peripheral pulses Extremiti es: no edema Gastrointestinal ( Abdomen): Percussion/[place] on: abdomen soft; abdomen nontender Musculoskeletal: NO Tenderness ove r left trochanteri c bursa Skin: no rashes, warm an d dry Neurologic: no focal motor def icits Psychiatric: Orientation: alert and oriented x 3 Affect: mood much improved this mor mouna Results & Data Results & Data ([facility]) Vital Signs (Past 12 Hours) Vital Signs Temp Pulse Resp BP Pulse Ox O2 Del Method 08/31/22 08:18 36.8 C 95 H 16 146/95 H 97 Room Air Diagnostic Findings Laboratory Results WBC 7.62 K/ul (4.8-10.8) 08/31/22 06:22 RBC 5.49 M/uL (3.93-5.22) H 08/31/22 06:22 Hgb 15.7 g/dl (12.0-16.0) 08/31/22 06:22 Hct 45.5 % (34.1-44.9) H 08/31/22 06:22 MCV 82.9 fL (80.0-100.0) 08/31/22 06:22 MCH 28.6 pg (25.0-34.0) 08/31/22 06:22 MCHC 34.5 g/dL (32.0-36.0) 08/31/22 06:22 RDW Std Deviation 40.9 fL (36.4-46.3) 08/31/22 06: RDW Coeff of [place] 13.5 % (11.5-14.5) 08/31/22 06:22 Plt Count 298 K/uL (130-400) 08/31/22 06:22 MPV 9.6 fL (9.4-12.3) 08/31/22 06: Immature Gran % (Auto) 0.9 % 08/31/22: Neut % (Auto) 61.5 % 08/31/22 06:22 Lymph % (Auto) 26.4 % 08/31/22 06:22 [place] % (Auto) 6.8 % 08/31/22 06:22 Eos % (Auto) 3.7 % 08/31/22 06:22 Baso % (Auto) 0.7 % 08/31/22 06:22 Neut # (Auto) 4.69 K/uL (1.4-6.5) 08/31/22 06:22 Lymph # (Auto) 2.01 K/uL (1.2-3.4) 08/31/22 06:22 [place] # (Auto) 0.52 K/uL (0.24-0.82) 08/31/22 06:22 Eos # (Auto) 0.28 K/uL (0-0.50) 08/31/22 06:22 Baso # (Auto) 0.05 K/uL (0-0.2) 08/31/22 06:22 Immature Gran # (Auto) 0.07 K/uL (0.00-0.02) H 08/31/22 06:22 PT 9.8 Seconds (9.0-12.0) 08/29/22 06:59 INR 0.9 (0.9-1.1) 08/29/22 06:59 Sodium 136 mmol/L (136-145) 08/31/22 06:22 Potassium 4.8 mmol/L (3.5-5.1) 08/31/22 06:22 Chloride 104 mmol/L (98-107) 08/31/22 06:22 Carbon Dioxide 22 mmol/L (21-32) 08/31/22 06:22 Anion Gap 10 (3-11) 08/31/22 06:22 BUN 35 mg/dl (6-23) H 08/31/22 06:22 Creatinine 0.99 mg/dl (0.6-1.2) 08/31/22 06:22 Est Cr Clr Drug Dosing 54.7 ml/min 08/31/22 06:22 Est GFR ( Amer) 72.3 ml/min 08/31/22 06:22 Est GFR (Non-Af Amer) 62.4 ml/min 08/31/22 06:22 BUN/Creatinine Ratio 35.4 (10-20) H 08/31/22 06:22 Glucose 118 mg/dl (70-99(Fasting)) H 08/31/22 06:22 POC Glucose 144 mg/dl (70-99) H 08/31/22 12:04 Estimat Average Glucose 148 mg/dl 08/25/22 16:31 Hemoglobin A1c 6.8 % (4.5-5.6) H 08/25/22 16:31 Calcium 9.9 mg/dl (8.5-10.1) 08/31/22 06:22 Phosphorus 4.8 mg/dl (2.5-4.9) 08/31/22 06:22 Magnesium 1.9 mg/dl (1.7-2.4) 08/31/22 06:22 Total Bilirubin 0.6 mg/dl (0.2-1.0) 08/31/22 06:22 AST 66 U/L (13-39) H 08/31/22 06:22 ALT 110 U/L (7-52) H 08/31/22 06:22 Alkaline Phosphatase 54 U/L (34-104) 08/31/22 06:22 Total Protein 7.6 gm/dl (6.0-8.3) 08/31/22 06: Albumin 4.4 gm/dl (3.4-5.0) 08/31/22 06:22 Globulin 3.2 gm/dl (2.5-4.0) 08/31/22 06:22 Albumin/Globulin Ratio 1.4 (0.9-2) 08/31/22 06:22 Lipase 101 U/L (11-82) H 08/25/22 16:31 TSH 0.842 uIu/ml (0.300-4.500) 08/26/22 06:46 Urine Color Yellow 08/25/22 18:25 Urine Appearance Cloudy (Clear) A 08/25/22 18:25 Urine pH 5.5 (4.5-7.5) 08/25/22 18:25 Ur Specific [place] > 1.045 (1.000-1.030) H 08/25/22 18:25 Urine Protein Negative (Negative) 08/25/22 18:25 Urine Glucose (UA) Negative (Negative) 08/25/22 18:25 Urine Ketones Negative (Negative) 08/25/22 18:25 Urine Blood Negative (Negative) 08/25/22 18:25 Urine Nitrite Negative (Negative) 08/25/22 18:25 Urine Bilirubin Negative (Negative) 08/25/22 18:25 Urine Urobilinogen Negative (Negative) 08/25/22 18:25 Ur Leukocyte Esterase 2+ (Negative) H 08/25/22 18:25 Urine WBC (Auto) >30 /hpf (0-5) H 08/25/22 18:25 Urine RBC (Auto) 0-4 /hpf (0-4) 08/25/22 18:25 U Hyaline Cast (Auto) 1-5 /lpf (0-5) 08/25/22 18:25 U Epithel Cells (Auto) >30 /lpf (0-5) H 08/25/22 18:25 Urine Bacteria (Auto) Negative (Negative) 08/25/22 18:25 Urine Yeast Budding (None Prsent) A 08/25/22 18:25 SARS-CoV-2, RNA, NAAT NEGATIVE (NEGATIVE) 08/25/22 20:57 Impressions Abdomen/Pelvis CT 08/25/22 16:[address] WITH IV CONTRAST CT DOSE: 303.30 mGy.cm HISTORY: Acute left lower quadrant and left flank pain Left flank and LLQ pain with recent UTI TECHNIQUE: Multiaxial CT images of the abdomen and pelvis were performed following the IV administration of 93 cc of Optiray, A dose lowering technique was utilized adhering to the principles of ALARA. COMPARISON STUDY: Pelvis and hip radiographs of same day FINDINGS: Imaged inferior cardiac chambers are unremarkable. Mild subsegmental bibasilar atelectasis. Likely benign 4 mm solid nodule of the right middle lobe. No pneumatosis or pneumoperitoneum. Unremarkable spleen, pancreas and adrenal glands. Cholecystectomy. Probable hepatic steatosis without evidence of cirrhosis. Patency of the hepatic and portal veins. . Kidneys demonstrate no hydronephrosis. Indeterminate 6 mm area of slightly decreased enhancement within the inferior pole left kidney. This is too small to characterize. Unremarkable urinary bladder. Uterus appears surgically absent. Trace free pelvic fluid. Atherosclerosis of the aorta without aneurysm. No lymphadenopathy. Small hiatal hernia. No bowel obstruction or bowel wall thickening. Moderate colonic fecal retention. Noninflamed appendix. Postoperative changes of the anterior abdominal wall. Small fat filled infraumbilical hernia, diastases of 2.1 cm. Degenerative changes of the spine, pelvis and hips. L4-L5 and L5-S1 discectomy. IMPRESSION: 1. No acute intra-abdominal or intrapelvic abnormality. 2. No bowel obstruction or bowel wall thickening. Normal appendix. 3. Moderate fecal retention. 4. Small hiatal hernia. 5. Trace free pelvic fluid. ACT 112: Negative or not required by law. The above report was generated using voice recognition software. It may contain grammatical, syntax or spelling errors. Electronically signed by: Andrew Pimentel M.D. 08/25/2022 5:45 PM Hip/Pelvis X-Ray 08/25/22 16:19 XR hip LT 2V w pelvis HISTORY: 61 years-old Female left hip pain acute left-sided hip pain COMPARISON: None TECHNIQUE: AP view of the pelvis with 2 views of the left hip FINDINGS: Postoperative changes of the imaged lower lumbar spine with surgical clips of the pelvis. Mild gaseous distention of the rectum with pelvic basin phleboliths. Mild osteoarthritis of the hips. No acute fracture, dislocation or avascular necrosis. IMPRESSION: No acute fracture or dislocation. ACT 112: Negative or not required by law. The above report was generated using voice recognition software. It may contain grammatical, syntax or spelling errors. Electronically signed by: Andrew Pimentel M.D. 08/25/2022 5:14 PM Lumbar Spine MRI 08/25/22 21:32 LUMBAR SPINE MRI HISTORY: worsening back pain, LLE weakness TECHNIQUE: Multiplanar multisequence MRI of the lumbar spine was performed without the use of contrast. COMPARISON: Abdomen and pelvis CT 08/25/2022. FINDINGS: For the purpose of the report the L5-S1 disc space will be located on axial image 26 of 29. Postoperative changes at L4-L5 and L5-S1 suggesting prior discectomies. The conus terminates at the L2 level. Straightening of the lumbar spine. No fracture or subluxation. The visualized sacrum is intact. Mild disc space narrowing at L2-L3. L1-L2: No significant central canal or neural foraminal narrowing. L2-L3: No significant central canal or neural foraminal narrowing. Small broad- based posterior disc bulge. L3-L4: No significant central canal or neural foraminal narrowing. L4-L5: No significant central canal or neural foraminal narrowing. L5-S1: Moderate left-sided neural foraminal narrowing. No significant central canal or right-sided neural foraminal narrowing. IMPRESSION: 1. No fracture or subluxation within the lumbar spine. 2. Mild disc space narrowing at L2-L3 without significant central canal or neural foraminal narrowing. 3. Postoperative changes at L4-5 and L5-S1. 4. Moderate left-sided neural foraminal narrowing at L5-S1. ACT 112: Negative or not required by law. Electronically signed by: Braxton Olivier M.D. 08/26/2022 7:31 AM Lumbar Spine X-Ray 08/26/22 07:48 XR lumbar spine min 4V routine CLINICAL HISTORY: Low back pain. COMPARISON STUDY: Lumbar spine MRI 08/25/2022. FINDINGS: Contrast within the bladder from the prior CT examination. There is prior cholecystectomy. Large amount well-formed stool seen throughout the colon. No fracture or subluxation within the lumbar spine. Intervertebral cages and fusion from L4 through S1. Remaining disc spaces are preserved. No acute fracture or subluxation. The sacrum is intact. IMPRESSION: 1. No fracture or subluxation within the lumbar spine. 2. Postoperative changes again noted within the lower lumbar spine. ACT 112: Negative or not required by law. Electronically signed by: Braxton Olivier M.D. 08/26/2022 9:53 AM Medications Administered Current Inpatient Medications Acetaminophen (Acetaminophen 325 Mg Tab) 650 mg PO Q8H ABHINAV Stop: 09/27/22 09:59 Last Admin: 08/31/22 09:40 Dose: 650 mg Hydrocodone Bitart/Acetaminophen (Hydrocodone/Acetamophen 5/325mg Tab) 1 tab PO Q6H PRN PRN Reason: Back Pain Stop: 09/08/22 23:55 Last Admin: 08/31/22 08:22 Dose: 1 tab Baclofen (Baclofen 10 Mg Tab) 10 mg PO BID ABHINAV Stop: 09/29/22 20:59 Last Admin: 08/31/22 09:39 Dose: 10 mg Bisacodyl (Bisacodyl 10 Mg Supp) 10 mg TX BID PRN PRN Reason: Constipation Stop: 09/26/22 18:35 Last Admin: 08/28/22 09:36 Dose: 10 mg Dextrose (Dextrose 50% 50 Ml Syringe) 25 - 50 ml IV UD PRN; Protocol PRN Reason: Hypoglycemia Protocol Stop: 09/24/22 23:55 Diazepam (Diazepam 2 Mg Tablet) 2 mg PO BID PRN PRN Reason: spasm/anxiety Stop: 09/29/22 08:24 Last Admin: 08/30/22 09:09 Dose: 2 mg Diclofenac Sodium (Diclofenac Sod 1% Gel 100 Gm Tube) 4 gm EXT Q6H PRN; Protocol PRN Reason: pain Stop: 09/30/22 11:29 Famotidine (Famotidine 20 Mg Tab) 20 mg PO BID [facility] Stop: 09/27/22 13:04 Last Admin: 08/31/22 09:39 Dose: 20 mg Glucagon (Glucagon For Inj 1 Mg Vial) 1 mg SQ UD PRN; Protocol PRN Reason: Hypoglycemia Protocol Stop: 09/24/22 23:55 Glucose (Glucose 40% Gel 15 Gm Tube) 15 - 30 gm PO UD PRN; Protocol PRN Reason: Hypoglycemia Protocol Stop: 09/24/22 23:55 Glucose (Glucose 10 Tab/Tube) 4 - 8 tab PO UD PRN; Protocol PRN Reason: Hypoglycemia Treatment Stop: 09/24/22 23:55 Promethazine HCl 6.25 mg/ (Sodium Chloride) 50.25 mls @ 201 mls/hr IV Q6H PRN PRN Reason: Nausea And Vomiting Stop: 09/24/22 21:30 Last Infusion: 08/29/22 13:17 Dose: Infused Insulin Aspart (Insulin Aspart Per Unit) 0 units SC ACHS ABHINAV Stop: 09/25/22 05:59 Last Admin: 08/31/22 10:27 Dose: Not Given Insulin Glargine (Lantus Per Unit Charge) 20 units SQ HS [facility] Stop: 09/25/22 20:59 Last Admin: 08/30/22 21:47 Dose: Not Given Levothyroxine Sodium (Levothyroxine Sodium 75 Mcg Tablet) 75 mcg PO DAILYBB ABHINAV Stop: 09/25/22 06:29 Last Admin: 08/31/22 05:53 Dose: 75 mcg Lidocaine (Lidocaine 5% 1 Patch) 1 patch TD QAM ABHINAV Stop: 09/24/22 21:34 Last Admin: 08/31/22 09:41 Dose: 1 patch Lorazepam (Lorazepam 0.5 Mg Tab) 0.25 mg PO TID PRN PRN Reason: Anxiety Stop: 09/24/22 21:30 Magnesium Hydroxide (Magnesium Hydroxide Susp 30 Ml Udc) 30 ml PO DAILY PRN PRN Reason: constipation Stop: 09/27/22 12:46 Miscellaneous (Remove Lidoderm Patch) 1 each N/A DAILY@2100 [facility] Stop: 09/25/22 08:59 Last Admin: 08/30/22 20:50 Dose: 1 each Miscellaneous (Carbohydrates For Hypoglycemia ) 15 - 30 gm PO UD PRN PRN Reason: Hypoglycemia Protocol Stop: 09/24/22 23:55 Naproxen (Naproxen 375 Mg Tab) 375 mg PO BID [facility] Stop: 09/14/22 11:44 Last Admin: 08/31/22 12:15 Dose: 375 mg Polyethylene Glycol (Polyethylene (Miralax) 17 Gm Pack) 17 gm PO BID [facility] Stop: 09/27/22 20:59 Last Admin: 08/31/22 09:40 Dose: Not Given Senna/Docusate Sodium (Docusate Sodium/Senna 50/8.6mg Tab) 1 tab PO BID [facility] Stop: 09/25/22 08:59 Last Admin: 08/31/22 09:39 Dose: 1 tab (1) Back pain Back pain laterality: left Back pain location: low back pain Chronicity: chronic Sciatica laterality: sciatica of left side Sciatica presence: with sciatica Qualified Code(s): M54.42 - Lumbago with sciatica, left side; G89.29 - Other chronic pain
[2022-08-31] MEDS: diazePAM 2 MG TABLET PO PRN (17:47)
[2022-08-31] MEDS: LANTUS PER UNIT CHARGE SQ SCH (21:08)
[2022-08-31] MEDS ORDERED: HYDROmorphone INJ 0.5 MG/0.5 ML SYR IV STA (22:10)
[2022-09-01] MEDS: ACETAMINOPHEN 325 MG TAB PO SCH ×3 (02:17→18:10)
[2022-09-01] MEDS: LEVOTHYROXINE SODIUM 75 MCG TABLET PO SCH (06:33)
[2022-09-01 06:46] LABS: BUN Creatinine Ratio 48.5 (10-20); Calcium 9.5 mg/dl (8.5-10.1); Creatinine Clr Calc Pharmacy 55.8 ml/min; Est GFR (African American) 74.1 ml/min; Est GFR (Non-African American) 63.9 ml/min; Magnesium 2.2 mg/dl (1.7-2.4); Phosphorus 4.2 mg/dl (2.5-4.9); Potassium 4.7 mmol/L (3.5-5.1)
[2022-09-01] MEDS: diazePAM 2 MG TABLET PO PRN (08:01)
[2022-09-01] MEDS: DOCUSATE SODIUM/SENNA 50/8.6MG TAB PO SCH ×2 (10:08→20:36)
[2022-09-01] MEDS: BACLOFEN 10 MG TAB PO SCH ×2 (10:08→20:37)
[2022-09-01] MEDS: NAPROXEN 375 MG TAB PO SCH ×2 (10:08→20:36)
[2022-09-01] MEDS: POLYETHYLENE (MIRALAX) 17 GM PACK PO SCH ×2 (10:09→20:38)
[2022-09-01] MEDS: FAMOTIDINE 20 MG TAB PO SCH ×2 (10:09→20:37)
[2022-09-01] MEDS: LIDOCAINE 5% 1 PATCH TD SCH (10:10)
[2022-09-01] MEDS: INSULIN ASPART PER UNIT SC SCH ×4 (10:30→20:34)
[2022-09-01] MEDS ORDERED: SODIUM CHLORIDE 0.9% 500 ML IV SCH ×2 (10:45→15:15)
--- NOTE | 2022-09-01 11:03 | Hospitalist Progress Note ---
Date of Service September 01, 2022 Assessment & Plan (1) Back pain: Plan: Acute Left sacroiliitis/Left greater trochanteric bursitis MRI Lumbar Spine:No fracture or subluxation within the lumbar spine. Mild disc space narrowing at L2-L3 without significant central canal or neural foraminal narrowing. Postoperative changes at L4-5 and L5-S1. Moderate left-sided neural foraminal narrowing at L5-S1. Hip/Pelvic X ray: No acute fracture or dislocation. Spine Ortho consult -no surgical intervention recommended at this time, advised pain management consult for possible SI joint injection Trialed steroids and hydrocodone as an outpatient without any relief - Per pain management -- Patient's pain is primarily in the left greater trochanteric bursa and could consider bursa injection. Patient does have sacroiliitis on the left but she states that this is chronic pain - Could consider SI joint injections on an outpatient basis. - prn toradol - s/p left greater trochanteric bursa steroid injection with pain management 08/29/2022 with significant pain relief per patient but relapsed with a lot of pain per patient - nontender to palpation - Continue Lidoderm patch and [place]. - started on scheduled naproxen BID for 2 weeks - will get CT- left hip without an with contrast to evaluate due to no relief with steroid injection or pain medications, physical therapy - patient not progressing at all - PT/OT evaluation ok for home with HH Constipation Likely due to Narcotics CT ABD:No acute intra-abdominal or intrapelvic abnormality. No bowel obstruction or bowel wall thickening. Normal appendix. Moderate fecal retention. Small hiatal hernia. - aggressive bowel regimen DM II HbA1c 6.8 Hold oral medications Continue Lantus and Novolog per protocol Hypothyroidism Normal TSH Continue Levothyroxine DVT prophylaxis SCDs Admission and Anticipated Discharge Date Admission Date: August 26, 2022 Subjective Patient admitted with chronic low back pain and acute worsening of left hip pain, found to have likely greater trochanteric bursitis cuasing significant pain. Initially thought to have UTI but repeat culture negative. Pain managemnt following and patient is now s/p left hip steroid injection with relief of severe pain. Patient complains of pain in left hip this morning, severe pain. Denies chest pain, shortness of breath, n/v/d, abdominal pain. Review of Systems Review of Systems: ROS per HPI, all other systems reviewed and negative Physical Exam Physical Exam: Constitutional:L WD/WN, vitals as a lance Respiratory: normal respiratory effort, lungs keith ar to auscultation Cardiovascular:L Rate/Rhythm: regul ar rate and regula r rhythm Vessels: normal peripheral pulses Extremiti es: no edema Gastrointestinal ( Abdomen): Percussion/Palpati on: abdomen soft; abdomen nontender Musculoskeletal: NO Tenderness ove r left trochanteri c bursa Skin: no rashes, warm an d dry Neurologic: no focal motor def icits Psychiatric: Orientation: alert and oriented x 3 Affect: anxious, distressed Results & Data Results & Data ([facility]) Vital Signs (Past 12 Hours) Vital Signs Temp Pulse Resp BP Pulse Ox O2 Del Method 09/01/22 08:23 36.5 C 84 16 146/84 H 95 Room Air 08/31/22 23:16 36.5 C 88 18 124/54 L 96 Room Air Diagnostic Findings Laboratory Results WBC 7.62 K/ul (4.8-10.8) 08/31/22 06:22 RBC 5.49 M/uL (3.93-5.22) H 08/31/22 06:22 Hgb 15.7 g/dl (12.0-16.0) 08/31/22 06:22 Hct 45.5 % (34.1-44.9) H 08/31/22 06:22 MCV 82.9 fL (80.0-100.0) 08/31/22 06:22 MCH 28.6 pg (25.0-34.0) 08/31/22 06:22 MCHC 34.5 g/dL (32.0-36.0) 08/31/22 06:22 RDW Std Deviation 40.9 fL (36.4-46.3) 08/31/22 06:22 RDW Coeff of [place] 13.5 % (11.5-14.5) 08/31/22 06:22 Plt Count 298 K/uL (130-400) 08/31/22 06:22 MPV 9.6 fL (9.4-12.3) 08/31/22 06:22 Immature Gran % (Auto) 0.9 % 08/31/22 06:22 Neut % (Auto) 61.5 % 08/31/22 06:22 Lymph % (Auto) 26.4 % 08/31/22 06:22 [place] % (Auto) 6.8 % 08/31/22 06:22 Eos % (Auto) 3.7 % 08/31/22 06:22 Baso % (Auto) 0.7 % 08/31/22 06:22 Neut # (Auto) 4.69 K/uL (1.4-6.5) 08/31/22 06:22 Lymph # (Auto) 2.01 K/uL (1.2-3.4) 08/31/22 06:22 [place] # (Auto) 0.52 K/uL (0.24-0.82) 08/31/22 06:22 Eos # (Auto) 0.28 K/uL (0-0.50) 08/31/22 06:22 Baso # (Auto) 0.05 K/uL (0-0.2) 08/31/22 06:22 Immature Gran # (Auto) 0.07 K/uL (0.00-0.02) H 08/31/22 06:22 PT 9.8 Seconds (9.0-12.0) 08/29/22 06:59 INR 0.9 (0.9-1.1) 08/29/22 06:59 Sodium 136 mmol/L (136-145) 09/01/22 05:51 Potassium 4.7 mmol/L (3.5-5.1) 09/01/22 05:51 Chloride 105 mmol/L (98-107) 09/01/22 05:51 Carbon Dioxide 23 mmol/L (21-32) 09/01/22 05:51 Anion Gap 8 (3-11) 09/01/22 05:51 BUN 47 mg/dl (6-23) H 09/01/22 05:51 Creatinine 0.97 mg/dl (0.6-1.2) 09/01/22 05:51 Est Cr Clr Drug Dosing 55.8 ml/min 09/01/22 05:51 Est GFR ( Amer) 74.1 ml/min 09/01/22 05:51 Est GFR (Non-Af Amer) 63.9 ml/min 09/01/22 05:51 BUN/Creatinine Ratio 48.5 (10-20) H 09/01/22 05:51 Glucose 100 mg/dl (70-99(Fasting)) H 09/01/22 05:51 POC Glucose 85 mg/dl (70-99) 09/01/22 07:55 Estimat Average Glucose 148 mg/dl 08/25/22 16:31 Hemoglobin A1c 6.8 % (4.5-5.6) H 08/25/22 16:31 Calcium 9.5 mg/dl (8.5-10.1) 09/01/22 05:51 Phosphorus 4.2 mg/dl (2.5-4.9) 09/01/22 05:51 Magnesium 2.2 mg/dl (1.7-2.4) 09/01/22 05:51 Total Bilirubin 0.6 mg/dl (0.2-1.0) 08/31/22 06:22 AST 66 U/L (13-39) H 08/31/22 06:22 ALT 110 U/L (7-52) H 08/31/22 06:22 Alkaline Phosphatase 54 U/L (34-104) 08/31/22 06:22 Total Protein 7.6 gm/dl (6.0-8.3) 08/31/22 06:22 Albumin 4.4 gm/dl (3.4-5.0) 08/31/22 06:22 Globulin 3.2 gm/dl (2.5-4.0) 08/31/22 06:22 Albumin/Globulin Ratio 1.4 (0.9-2) 08/31/22 06:22 Lipase 101 U/L (11-82) H 08/25/22 16:31 TSH 0.842 uIu/ml (0.300-4.500) 08/26/22 06:46 Urine Color Yellow 08/25/22 18:25 Urine Appearance Cloudy (Clear) A 08/25/22 18:25 Urine pH 5.5 (4.5-7.5) 08/25/22 18:25 Ur Specific [place] > 1.045 (1.000-1.030) H 08/25/22 18:25 Urine Protein Negative (Negative) 08/25/22 18:25 Urine Glucose (UA) Negative (Negative) 08/25/22 18:25 Urine Ketones Negative (Negative) 08/25/22 18:25 Urine Blood Negative (Negative) 08/25/22 18:25 Urine Nitrite Negative (Negative) 08/25/22 18:25 Urine Bilirubin Negative (Negative) 08/25/22 18:25 Urine Urobilinogen Negative (Negative) 08/25/22 18:25 Ur Leukocyte Esterase 2+ (Negative) H 08/25/22 18:25 Urine WBC (Auto) >30 /hpf (0-5) H 08/25/22 18:25 Urine RBC (Auto) 0-4 /hpf (0-4) 08/25/22 18:25 U Hyaline Cast (Auto) 1-5 /lpf (0-5) 08/25/22 18:25 U Epithel Cells (Auto) >30 /lpf (0-5) H 08/25/22 18:25 Urine Bacteria (Auto) Negative (Negative) 08/25/22 18:25 Urine Yeast Budding (None Prsent) A 08/25/22 18:25 SARS-CoV-2, RNA, NAAT NEGATIVE (NEGATIVE) 08/25/22 20:57 Impressions Abdomen/Pelvis CT 08/25/22 16:[address] WITH IV CONTRAST CT DOSE: 303.30 mGy.cm HISTORY: Acute left lower quadrant and left flank pain Left flank and LLQ pain with recent UTI TECHNIQUE: Multiaxial CT images of the abdomen and pelvis were performed following the IV administration of 93 cc of Optiray, A dose lowering technique was utilized adhering to the principles of ALARA. COMPARISON STUDY: Pelvis and hip radiographs of same day FINDINGS: Imaged inferior cardiac chambers are unremarkable. Mild subsegmental bibasilar atelectasis. Likely benign 4 mm solid nodule of the right middle lobe. No pneumatosis or pneumoperitoneum. Unremarkable spleen, pancreas and adrenal glands. Cholecystectomy. Probable hepatic steatosis without evidence of cirrhosis. Patency of the hepatic and portal veins. . Kidneys demonstrate no hydronephrosis. Indeterminate 6 mm area of slightly decreased enhancement within the inferior pole left kidney. This is too small to characterize. Unremarkable urinary bladder. Uterus appears surgically absent. Trace free pelvic fluid. Atherosclerosis of the aorta without aneurysm. No lymphadenopathy. Small hiatal hernia. No bowel obstruction or bowel wall thickening. Moderate colonic fecal retention. Noninflamed appendix. Postoperative changes of the anterior abdominal wall. Small fat filled infraumbilical hernia, diastases of 2.1 cm. Degenerative changes of the spine, pelvis and hips. L4-L5 and L5-S1 discectomy. IMPRESSION: 1. No acute intra-abdominal or intrapelvic abnormality. 2. No bowel obstruction or bowel wall thickening. Normal appendix. 3. Moderate fecal retention. 4. Small hiatal hernia. 5. Trace free pelvic fluid. ACT 112: Negative or not required by law. The above report was generated using voice recognition software. It may contain grammatical, syntax or spelling errors. Electronically signed by: Andrew Pimentel M.D. 08/25/2022 5:45 PM Hip/Pelvis X-Ray 08/25/22 16:19 XR hip LT 2V w pelvis HISTORY: 61 years-old Female left hip pain acute left-sided hip pain COMPARISON: None TECHNIQUE: AP view of the pelvis with 2 views of the left hip FINDINGS: Postoperative changes of the imaged lower lumbar spine with surgical clips of the pelvis. Mild gaseous distention of the rectum with pelvic basin phleboliths. Mild osteoarthritis of the hips. No acute fracture, dislocation or avascular necrosis. IMPRESSION: No acute fracture or dislocation. ACT 112: Negative or not required by law. The above report was generated using voice recognition software. It may contain grammatical, syntax or spelling errors. Electronically signed by: Andrew Pimentel M.D. 08/25/2022 5:14 PM Lumbar Spine MRI 08/25/22 21:32 LUMBAR SPINE MRI HISTORY: worsening back pain, LLE weakness TECHNIQUE: Multiplanar multisequence MRI of the lumbar spine was performed without the use of contrast. COMPARISON: Abdomen and pelvis CT 08/25/2022. FINDINGS: For the purpose of the report the L5-S1 disc space will be located on axial image of 29. Postoperative changes at L4-L5 and L5-S1 suggesting prior discectomies. The conus terminates at the L2 level. Straightening of the lumbar spine. No fracture or subluxation. The visualized sacrum is intact. Mild disc space narrowing at L2-L3. L1-L2: No significant central canal or neural foraminal narrowing. L2-L3: No significant central canal or neural foraminal narrowing. Small broad- based posterior disc bulge. L3-L4: No significant central canal or neural foraminal narrowing. L4-L5: No significant central canal or neural foraminal narrowing. L5-S1: Moderate left-sided neural foraminal narrowing. No significant central canal or right-sided neural foraminal narrowing. IMPRESSION: 1. No fracture or subluxation within the lumbar spine. 2. Mild disc space narrowing at L2-L3 without significant central canal or neural foraminal narrowing. 3. Postoperative changes at L4-5 and L5-S1. 4. Moderate left-sided neural foraminal narrowing at L5-S1. ACT 112: Negative or not required by law. Electronically signed by: Braxton Olivier M.D. 08/26/2022 7:31 AM Lumbar Spine X-Ray 08/26/22 07:48 XR lumbar spine min 4V routine CLINICAL HISTORY: Low back pain. COMPARISON STUDY: Lumbar spine MRI 08/25/2022. FINDINGS: Contrast within the bladder from the prior CT examination. There is prior cholecystectomy. Large amount well-formed stool seen throughout the colon. No fracture or subluxation within the lumbar spine. Intervertebral cages and fusion from L4 through S1. Remaining disc spaces are preserved. No acute fracture or subluxation. The sacrum is intact. IMPRESSION: 1. No fracture or subluxation within the lumbar spine. 2. Postoperative changes again noted within the lower lumbar spine. ACT 112: Negative or not required by law. Electronically signed by: Braxton Olivier M.D. 08/26/2022 9:53 AM Medications Administered Current Inpatient Medications Acetaminophen (Acetaminophen 325 Mg Tab) 650 mg PO Q8H ABHINAV Stop: 09/27/22 09:59 Last Admin: 09/01/22 10:09 Dose: 650 mg Hydrocodone Bitart/Acetaminophen (Hydrocodone/Acetamophen 5/325mg Tab) 1 tab PO Q6H PRN PRN Reason: Back Pain Stop: 09/08/22 23:55 Last Admin: 08/31/22 16:30 Dose: 1 tab Baclofen (Baclofen 10 Mg Tab) 10 mg PO BID ABHINAV Stop: 09/29/22 20:59 Last Admin: 09/01/22 10:08 Dose: 10 mg Bisacodyl (Bisacodyl 10 Mg Supp) 10 mg [place] BID PRN PRN Reason: Constipation Stop: 09/26/22 18:35 Last Admin: 08/28/22 09:36 Dose: 10 mg Dextrose (Dextrose 50% 50 Ml Syringe) 25 - 50 ml IV UD PRN; Protocol PRN Reason: Hypoglycemia Protocol Stop: 09/24/22 23:55 Diazepam (Diazepam 2 Mg Tablet) 2 mg PO BID PRN PRN Reason: spasm/anxiety Stop: 09/29/22 08:24 Last Admin: 09/01/22 08:01 Dose: 2 mg Diclofenac Sodium (Diclofenac Sod 1% Gel 100 Gm Tube) 4 gm EXT Q6H PRN; Protocol PRN Reason: pain Stop: 09/30/22 11:29 Famotidine (Famotidine 20 Mg Tab) 20 mg PO BID ABHINAV Stop: 09/27/22 13:04 Last Admin: 09/01/22 10:09 Dose: 20 mg Glucagon (Glucagon For Inj 1 Mg Vial) 1 mg SQ UD PRN; Protocol PRN Reason: Hypoglycemia Protocol Stop: 09/24/22 23:55 Glucose (Glucose 40% Gel 15 Gm Tube) 15 - 30 gm PO UD PRN; Protocol PRN Reason: Hypoglycemia Protocol Stop: 09/24/22 23:55 Glucose (Glucose 10 Tab/Tube) 4 - 8 tab PO UD PRN; Protocol PRN Reason: Hypoglycemia Treatment Stop: 09/24/22 23:55 Hydromorphone HCl (Hydromorphone Inj 0.5 Mg/0.5 Ml Syr) 0.5 mg IV NOW ONE Stop: 09/01/22 11:21 Promethazine HCl 6.25 mg/ (Sodium Chloride) 50.25 mls @ 201 mls/hr IV Q6H PRN PRN Reason: Nausea And Vomiting Stop: 09/24/22 21:30 Last Infusion: 08/29/22 13:17 Dose: Infused Sodium Chloride (Nss) 500 mls @ 999 mls/hr IV .Q31M [facility] Stop: 09/01/22 11:15 Insulin Aspart (Insulin Aspart Per Unit) 0 units SC ACHS [facility] Stop: 09/25/22 05:59 Last Admin: 09/01/22 10:30 Dose: Not Given Insulin Glargine (Lantus Per Unit Charge) 20 units SQ HS [facility] Stop: 09/25/22 20:59 Last Admin: 08/31/22 21:08 Dose: 20 units Levothyroxine Sodium (Levothyroxine Sodium 75 Mcg Tablet) 75 mcg PO DAILYBB [facility] Stop: 09/25/22 06:29 Last Admin: 09/01/22 06:33 Dose: 75 mcg Lidocaine (Lidocaine 5% 1 Patch) 1 patch TD QAM [facility] Stop: 09/24/22 21:34 Last Admin: 09/01/22 10:10 Dose: 1 patch Lorazepam (Lorazepam 0.5 Mg Tab) 0.25 mg PO TID PRN PRN Reason: Anxiety Stop: 09/24/22 21:30 Magnesium Hydroxide (Magnesium Hydroxide Susp 30 Ml Udc) 30 ml PO DAILY PRN PRN Reason: constipation Stop: 09/27/22 12:46 Miscellaneous (Remove Lidoderm Patch) 1 each N/A DAILY@2100 [facility] Stop: 09/25/22 08:59 Last Admin: 08/31/22 21:12 Dose: 1 each Miscellaneous (Carbohydrates For Hypoglycemia ) 15 - 30 gm PO UD PRN PRN Reason: Hypoglycemia Protocol Stop: 09/24/22 23:55 Naproxen (Naproxen 375 Mg Tab) 375 mg PO BID [facility] Stop: 09/14/22 11:44 Last Admin: 09/01/22 10:08 Dose: 375 mg Polyethylene Glycol (Polyethylene (Miralax) 17 Gm Pack) 17 gm PO BID [facility] Stop: 09/27/22 20:59 Last Admin: 09/01/22 10:09 Dose: Not Given Senna/Docusate Sodium (Docusate Sodium/Senna 50/8.6mg Tab) 1 tab PO BID [facility] Stop: 09/25/22 08:59 Last Admin: 09/01/22 10:08 Dose: 1 tab (1) Back pain Back pain laterality: left Back pain location: low back pain Chronicity: chronic Sciatica laterality: sciatica of left side Sciatica presence: with sciatica Qualified Code(s): M54.42 - Lumbago with sciatica, left side; G89.29 - Other chronic pain
[2022-09-01] MEDS ORDERED: HYDROmorphone INJ 0.5 MG/0.5 ML SYR IV ONE (11:20)
[2022-09-01] MEDS ORDERED: OPTIRAY 350 100ml IV ONE (12:19)
--- NOTE | 2022-09-01 12:30 | CT Scan Report ---
CT hip LT wo/w con HISTORY: 61 years-old Female left hip pain . Acute left-sided hip pain without reported trauma COMPARISON: CT abdomen and pelvis with pelvis and left hip radiographs 08/25/2022 TECHNIQUE: Multiple axial CT images of the left hip were obtained following the intravenous administr ation of 91 mL Optiray 350. A dose lowering technique was used consistent with the principals of ABA [place]. FINDINGS: Distended urinary bladder. Unremarkable soft tissues. Moderate colonic fecal retention. No acute intr apelvic abnormality. Unremarkable soft tissues. No large joint effusion. Minimal femoral acetabular osteoarthritis. No acute fracture, dislocation or avascular necrosis. IMPRESSION: 1. No acute fracture. 2. Distended urinary bladder. ACT 112: Negative or not required by law. The above report was generated using voice recognition software. It may contain grammatical, syntax o r spelling errors. Electronically signed by: Andrew Pimentel M.D. 09/01/2022 12:28 PM
[2022-09-01] MEDS: HYDROCODONE/ACETAMOPHEN 5/325MG TAB PO PRN ×2 (16:51→22:45)
[2022-09-01] MEDS: PROMETHAZINE HCL 6.25 MG in SODIUM CHLORIDE 0.9% 50 ML IV PRN (19:40)
[2022-09-01] MEDS: LANTUS PER UNIT CHARGE SQ SCH (20:34)
[2022-09-02] MEDS: ACETAMINOPHEN 325 MG TAB PO SCH ×2 (02:05→10:45)
[2022-09-02] MEDS: LEVOTHYROXINE SODIUM 75 MCG TABLET PO SCH (06:21)
[2022-09-02 06:54] LABS: BUN Creatinine Ratio 38.9 (10-20); Calcium 9.1 mg/dl (8.5-10.1); Creatinine Clr Calc Pharmacy 56.3 ml/min; Est GFR (African American) 75.5 ml/min; Est GFR (Non-African American) 65.1 ml/min; Phosphorus 4.4 mg/dl (2.5-4.9); Potassium 4.3 mmol/L (3.5-5.1)
--- NOTE | 2022-09-02 08:36 | Pain Management Progress Note ---
Date of Service September 02, 2022 Assessment & Plan (1) Greater trochanteric bursitis of left hip: (2) Sacroiliitis: (3) Anxiety disorder: Plan Patient's pain complaint is out of proportion for left trochanteric bursitis/gluteal bursitis/sacroiliitis. I suspect anxiety is the predominant contributor. Imaging has been unremarkable. Continue lidocaine patch, [place], Toradol. I did encourage the patient to get out of the hospital bed and do some light activities such as sit in a chair to eat meals. Nothing further to offer at this time. Continue psychiatric follow up. Admission and Anticipated Discharge Date Admission Date: August 26, 2022 Eric Pandey is reporting persistent left hip pain despite left greater trochanteric bursa that was performed on 08/29/22. She was reporting relief of pain for the duration of the local anesthetic. No pain relief at this time. She continues to report severe left hip pain. Patient has been primarily laying supine throughout the week. Yesterday she got out of bed once to urinate. Continues with lidocaine patch, [place], Toradol, Valium. Case discussed with Dr. Rios Physical Exam Physical Exam: GENERAL: This is a 62 year old female that was sleeping when I walked in and when awoken she is reporting 10/10 pain. BACK: Moves without difficulty. Well healed surgical incision along the lumbar midline. There is mild focal tenderness along the left SI joint. SKIN: [place], warm and dry. No rash noted. Redness along the entire buttock (from heating pad). No wounds noted. MS/EXTREMITY: There is no tenderness of the left greater trochanteric bursa. Full ROM of the left hip. Moderate tenderness along the left gluteal bursa. NEURO: Alert and appears oriented. Speech is fluent. Cranial Nerves are grossly intact. PSYCH: Alert, anxious. Results (Pain [facility]) Diagnostic Review CT Findings: CT hip LT wo/w con HISTORY: 61 years-old Female left hip pain . Acute left-sided hip pain without reported trauma COMPARISON: CT abdomen and pelvis with pelvis and left hip radiographs 08/25/2022 TECHNIQUE: Multiple axial CT images of the left hip were obtained following the intravenous administration of 91 mL Optiray 350. A dose lowering technique was used consistent with the principals of ALARA. FINDINGS: Distended urinary bladder. Unremarkable soft tissues. Moderate colonic fecal retention. No acute intrapelvic abnormality. Unremarkable soft tissues. No large joint effusion. Minimal femoral acetabular osteoarthritis. No acute fracture, dislocation or avascular necrosis. IMPRESSION: 1. No acute fracture. 2. Distended urinary bladder. ACT 112: Negative or not required by law. The above report was generated using voice recognition software. It may contain grammatical, syntax or spelling errors. Electronically signed by: Andrew Pimentel M.D. 09/01/2022 12:28 PM
[2022-09-02] MEDS: NAPROXEN 375 MG TAB PO SCH (09:05)
[2022-09-02] MEDS: DOCUSATE SODIUM/SENNA 50/8.6MG TAB PO SCH (09:06)
[2022-09-02] MEDS: FAMOTIDINE 20 MG TAB PO SCH (09:06)
[2022-09-02] MEDS: BACLOFEN 10 MG TAB PO SCH (09:06)
[2022-09-02] MEDS: LIDOCAINE 5% 1 PATCH TD SCH (09:06)
[2022-09-02] MEDS: POLYETHYLENE (MIRALAX) 17 GM PACK PO SCH (09:07)
[2022-09-02] MEDS: diazePAM 2 MG TABLET PO PRN (09:10)
[2022-09-02] MEDS: INSULIN ASPART PER UNIT SC SCH ×2 (09:53→12:46)
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
[2022-09-02] MEDS: HYDROCODONE/ACETAMOPHEN 5/325MG TAB PO PRN (13:23)
--- NOTE | 2022-09-02 15:23 | Discharge Summary ---
Date of Service September 02, 2022 Admission HPI Per Admitting Provider History obtained from patient and records. Medical history significant for chronic back pain status post surgery, DM2 on oral medications, hypothyroidism, past tobacco abuse. 3 weeks ago, patient noted worsening of chronic low back pain with radiation to the left leg after helping her mother out lifting some boxes of mother's home. 5 ER visits ([place] and [facility]) in the last few weeks secondary to back pain. Back MRI from 3 weeks ago showed nerve on bone problem as per patient. Closest appointment with [facility] spine specialists was in September. Patient able to get an appointment with [facility] orthopedic data review specialist next week. Last ER visit at [facility] ER 5 days ago. Patient told she also had a UTI for which Keflex was prescribed. Worsening back pain with left leg weakness noted by patient. Symptoms not responding to outpatient steroid course and Vicodin. No fever, no chills, no chest pain, no shortness of breath. Incontinence symptoms. Achy abdominal pain with constipation symptoms the last 2 days. Patient consulted ER for worsening discomfort increasing weakness. Decadron administered at the ER. Medical History as above Surgical History : Back surgery, neck surgery, cholecystectomy, hernia repair, hysterectomy Family History : DM Personal/Social history : Past tobacco abuse, no EtOH intake, disabled Admission Exam Per Admitting Provider GENERAL: uncomfor anxious, tearful, no respiratory distress SKIN: Normal color, warm HEENT: [place] palpebral conjunctivae, no ptosis, dry buccal mucosa NECK : Supple, no tenderness CHEST : CTA, no tenderness HEART : RRR, no obvious murmurs ABDOMEN: Some distention, minimal hypogastric tenderness BACK : Low back tenderness, positive SLR left > right EXTREMITIES : No LE swelling/tenderness, no other conspicuous deformities noted NEUROLOGIC : Coherent, no facial asymmetry, gait and stance not assessed Principal Diagnosis greater trochanteric pain syndrome Discharge Exam Constitutional: WD/WN, vitals as above Respiratory: normal respiratory effort, lungs clear to auscultation Cardiovascular: Rate/Rhythm: regular rate and regular rhythm Vessels: normal peripheral pulses Extremities: no edema Gastrointestinal (Abdomen): Percussion/Palpation: abdomen soft; abdomen nontender Musculoskeletal: NO Tenderness over left trochanteric bursa Skin: no rashes, warm and dry Neurologic:L no focal motor deficits Psychiatric: Orientation: alert and oriented x 3 Affect: anxious, distressed Discharge Data Allergies Allergy/AdvReac Type Severity Reaction Status Date / Time No Known Allergies Allergy Verified 08/25/22 16:19 Consultations 08/25/22 20:38 ED Decision to Admit Stat 08/25/22 21:30 Consult Orthopedic Surgery Routine 08/26/22 12:29 Consult Pain Management Routine 09/02/22 08:39 Consult Psychiatry Routine Ordered Studies 08/25/22 16:19 CT abd pelvis IV con only Stat 08/25/22 21:32 MRI Lumbar Spine [MR lumbar spine wo con] Urgent 09/01/22 10:42 CT hip LT wo/w con Urgent Hospital Course (1) Back pain: Acute Left sacroiliitis/Left greater trochanteric bursitis MRI Lumbar Spine:No fracture or subluxation within the lumbar spine. Mild disc space narrowing at L2-L3 without significant central canal or neural foraminal narrowing. Postoperative changes at L4-5 and L5-S1. Moderate left-sided neural foraminal narrowing at L5-S1. Hip/Pelvic X ray: No acute fracture or dislocation. Spine Ortho consult -no surgical intervention recommended at this time, advised pain management consult for possible SI joint injection Trialed steroids and hydrocodone as an outpatient without any relief - Per pain management -- Patient's pain is primarily in the left greater trochanteric bursa and could consider bursa injection. Patient does have sacroiliitis on the left but she states that this is chronic pain - Could consider SI joint injections on an outpatient basis. - prn toradol - s/p left greater trochanteric bursa steroid injection with pain management 08/29/2022 with significant pain relief per patient but relapsed with a lot of pain per patient - nontender to palpation - Continue Lidoderm patch and Ward. - started on scheduled naproxen BID for 2 weeks - CT of left hip negative for any abnormality - PT/OT evaluation ok for home with - ok for discharge with home PT Constipation Likely due to Narcotics CT ABD:No acute intra-abdominal or intrapelvic abnormality. No bowel obstruction or bowel wall thickening. Normal appendix. Moderate fecal retention. Small hiatal hernia. - aggressive bowel regimen DM II HbA1c 6.8 Hold oral medications Continue Lantus and Novolog per protocol Hypothyroidism Normal TSH Continue Levothyroxine DVT prophylaxis SCDs Total Time Total Time Spent Total Time Spent (In Minutes): 25 Total Time Includes: Examination of the Patient, Discharge Planning and Medication Reconciliation Discharge Plan Discharge Items Patient Disposition: Home - Home Health Services Reason For Visit: ABD PAIN, BACK PAIN Discharge Diagnosis: greater trochanteric bursitis Activity: As commented below Activity Comment: as tolerated Non-emergency contact: Primary Care Provider and Pain Management Call non-emergency contact if: you have any medication questions and your symptoms worsen Follow-up/Referrals: Linda Elise DO [Physician] - Juventino Salvador MD [Primary Care Provider] - 09/09/22 9:30 am (with HAYDEE Ayala) Diet: Carb Consistent or DM2 and Heart Healthy Addtl Attending Provider Instructions: You were admitted for acute pain in your left hip thought to be related to bursitis of your hip joint which is inflammation and irritation of a fluid pocket that helps cushion your joints. you were seen by pain management and given medications for pain as well as a steroid injection into the left hip bursa. You were given multimodal pain management with NSAIDs, topical gel Voltaren, lidocaine patch, and opioids as needed. You should continue these medications on an as needed basis. Finish 2 weeks of 375mg naproxen 2x/day, in the meantime do not take Celebrex and naproxen at the same time, can continue the Celebrex after completing course of naproxen. Pending Studies at Discharge: No Stand-Alone Forms: [facility], Smoking Cessation Medications and DC Order Prescriptions: New diclofenac sodium [Voltaren Arthritis Pain] 1 % Gel 4 g EXT Q6H PRN (Reason: pain (scale score 1-3)) Qty: 100 0RF naproxen 375 mg Tablet 375 mg PO BID Qty: 20 0RF polyethylene glycol 3350 [Miralax] 17 gram Powder In Packet 17 g PO BID Qty: 30 0RF famotidine 20 mg Tablet 20 mg PO BID Qty: 60 0RF sennosides-docusate sodium [Senokot-S] 8.6-50 mg Tablet 1 tab PO BID PRN (Reason: constipation) Qty: 30 0RF lidocaine 5 % Adhesive Patch,Medicated 1 patch transdermal QAM Qty: 30 0RF hydroxyzine pamoate [Vistaril] 50 mg capsule 50 mg PO TID PRN (Reason: anxiety) Qty: 30 0RF Continued cyclobenzaprine 10 mg tablet 10 mg PO TID PRN (Reason: Muscle Spasticity) hydrocodone-acetaminophen 5-325 mg tablet 1 tab PO Q6H PRN (Reason: Back Pain) levothyroxine 75 mcg tablet 75 mcg PO DAILY metformin 500 mg tablet extended release 24 hr 1,000 mg PO BID Discontinued prednisone 10 mg tablet 10 mg PO DAILY Discharge Orders: Discharge Order (Routine); Ordered 09/02/22 Ordered By: Roshan Zhang/Other Patient Handouts: Managing Type 2 Diabetes Admission Data Admit Date/Time: 08/26/22 10:31 Attending Provider: Roshan Goldsmith Admit Provider: Rocky Brice Primary Care Provider: Juventino Salvador Other Providers: Rocky Brice ; Christofer Mooney ; Linda Elise ; Bernarda Montejo ; Aixa Jimenez ; Nereida Ku Other Interventions: Discharge Summary Assessment (RN) Last Done: 09/02/22 12:00
[2022-09-02] MEDS ORDERED: LANTUS PER UNIT CHARGE SQ SCH (21:00)
== END 2022-09-02 14:54 | disposition home or self-care (01) ==
LOC: 3E 15:31 → ED 15:31 → 3E 23:56 → SUATTDRO 08-26 10:31
DX: K59.09 Other constipation; E11.9 Type 2 diabetes mellitus without complications; E03.9 Hypothyroidism, unspecified; K44.9 Diaphragmatic hernia without obstruction or gangrene; M46.1 Sacroiliitis, not elsewhere classified; N39.0 Urinary tract infection, site not specified; N30.00 Acute cystitis without hematuria; Z79.899 Other long term (current) drug therapy; R10.9 Unspecified abdominal pain; M70.62 Trochanteric bursitis, left hip; Z79.84 Long term (current) use of oral hypoglycemic drugs